=== PATIENT | male | born 1940 | race Caucasian/White ===

== ENCOUNTER → 2016-05-01 | Outpatient (CLI) | payer MEDICARE ==
[~2016-05-01] MED LIST: AMLO10TA82 PO; AMOX875T2 PO; AVOD0.5CAP PO; BENZ-13 PO; DABI150C2 PO; DRON400T2 PO; ERGO400T3 PO; GLIP10TA13 PO; KCL10CCR PO; LISI1TAB10 PO; METF-380 PO
--- NOTE | 2016-05-01 14:03 | Diagnostic Imaging Report ---
Ultrasound of the liver. INDICATION: Elevated liver enzymes. FINDINGS: The pancreas is obscured by bowel gas. The liver has hyperechoic parenchyma which attenuates the ultrasound beam suggestive of fatty infiltration. There is hepatopetal flow in the portal vein seen. There are multiple gallstones noted. The gallbladder is partially contracted. The patient ate breakfast two hours prior to the exam, and this is therefore not an unexpected finding in this setting. The CBD is obscured by bowel gas. The gallbladder wall is not significantly thickened. There is no pericholecystic fluid. Sonographic Currie sign is negative. The right kidney is 10.6 cm in length with no hydronephrosis or focal lesion. No fluid collection in the upper right abdomen seen. IMPRESSION: 1. Cholelithiasis. 2. Hepatic steatosis. Dictated by: Dictated on workstation # [id number]
== END ==
LOC: RAD 09:02
PROVIDERS: ATTEND Internal Medicine
DX: K80.20 Calculus of gallbladder without cholecystitis without obstruction (principal); K76.0 Fatty (change of) liver, not elsewhere classified
CPT/HCPCS: 76705

== ENCOUNTER 2016-05-21 09:27 | Outpatient (RCR) | payer MEDICARE ==
[2016-04-29 10:29] LABS: BASOPHILS % (AUTO) 1 % (0-10); EOSINOPHILS # (AUTO) 0.1 10^3/uL (0.0-0.3); EOSINOPHILS % (AUTO) 2 % (0-10); LYMPHOCYTES # (AUTO) 1.4 X 10^3 (1.0-4.0); LYMPHOCYTES % (AUTO) 31 % (12-44); MEAN CORPUSCULAR HEMOGLOBIN 31 PG (25-34); MEAN CORPUSCULAR HGB CONC 36 G/DL (32-36); MEAN CORPUSCULAR VOLUME 87 FL (80-99); MEAN PLATELET VOLUME 9.2 FL (7.4-10.4); MONOCYTES # (AUTO) 0.6 X 10^3 (0.0-1.0); MONOCYTES % (AUTO) 12 % (0-12); NEUTROPHILS # (AUTO) 2.5 X 10^3 (1.8-7.8); NEUTROPHILS % (AUTO) 54 % (42-75); PLATELET COUNT 204 10^3/uL (130-400); RED BLOOD COUNT 4.59 10^6/uL (4.35-5.85); RED CELL DISTRIBUTION WIDTH 13.4 % (10.0-14.5); WHITE BLOOD COUNT 4.6 10^3/uL (4.3-11.0)
[2016-05-05 08:47] LABS: 5 HIAA SEROTONIN URINE MG/L 3.3 MG/L; 5 HIAA SEROTONIN URINE RATIO 4 mg/gCR (0-14)
[2016-05-05 08:48] LABS: 5 HIAA URINE INTERPRETATION SEE FOOTNOTE; 5HIAA CREATININE 80 MG/DL; CREATININE SEROTONIN 1720 MG/D (800-2100)
[~2016-05-21 09:27] MED LIST changes: -BARIUM SUSPENSION 2.1% (VANILLA SILQ) 450 ML PO ONE; -CATHETER FLUSH 10 ML SYR IV PRN; -IOHEXOL 350 MG/ML 100 ML (OMNIPAQUE 350) VIAL IV ONE; -NS 100 ML (IVPB) BAG IV ONE; +NS IV 1000 ML (CANCER CTR) 1,000 ML ONE
== END 2016-07-28 | disposition home or self-care (01) ==
LOC: ONC 09:27
PROVIDERS: ATTEND Internal Medicine Hematology & Oncology
DX: Z08 Encounter for follow-up examination after completed treatment for malignant neoplasm (principal); Z85.89 Personal history of malignant neoplasm of other organs and systems; E11.22 Type 2 diabetes mellitus with diabetic chronic kidney disease; N18.3 Chronic kidney disease, stage 3 (moderate); Z79.899 Other long term (current) drug therapy
CPT/HCPCS: 36415; 83497; 85025; 86316; 96360; 99213

== ENCOUNTER → 2016-05-21 | Outpatient (CLI) | payer MEDICARE ==
[~2016-05-21] MED LIST changes: +BARIUM SUSPENSION 2.1% (VANILLA SILQ) 450 ML PO ONE; +CATHETER FLUSH 10 ML SYR IV PRN; +IOHEXOL 350 MG/ML 100 ML (OMNIPAQUE 350) VIAL IV ONE; +NS 100 ML (IVPB) BAG IV ONE
--- NOTE | 2016-05-21 14:10 | Diagnostic Imaging Report ---
PROCEDURE: CT chest, abdomen, and pelvis with contrast. TECHNIQUE: Multiple contiguous axial images were obtained through the chest, abdomen, and pelvis after the administration of intravenous contrast. INDICATION: Rectal cancer. COMPARISON: Exam compared with an abdominal and pelvic CT from 02/14/2013 and most recent chest performed on 02/10/2010. FINDINGS: Chest: Incidental azygos fissure is noted. Some mild subcarinal adenopathy shows mild increased from the prior. A rounded node measures a diameter of 1.9 cm today, previously 1.4 cm. A right inferior pulmonary hilar node posteriorly measuring 11 mm was previously about 9 mm. Shotty nodes on the left of the torey and inferomedial to the left main pulmonary artery measured 1.4 cm maximal, previously 0.9 cm. A right paramedian pretracheal node has a thickness of 7 mm today, previously 6 mm. These are only slight interval changes from a study of 2010 favoring benignity. No new melody mass could be identified, and no suspicious pulmonary parenchymal nodule. No evidence of pneumonia. No thoracic effusion. No acute chest wall pathology. Axillae appeared normal. No suspicious bony lesion. Abdomen and pelvis: Hepatic steatosis is a chronic finding as is cholecystolithiasis. No biliary dilatation, and no appreciable liver mass. The adrenals are negative. The spleen is negative. The pancreas is negative. The right upper quadrant portacaval lymph node is unchanged from the prior study of 2013 measuring 2.3 x 1.2 cm. The appendix is visualized and normal. There is no diverticulitis. There is no retroperitoneal lymphadenopathy. 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 There are bilateral bladder diverticula, better visualized at today's exam probably owing to interval greater bladder luminal distention. The bladder appeared otherwise normal. Thickening of the rectum discussed on prior exam is no longer clearly apparent. No perirectal adenopathy. IMPRESSION: Chest: Borderline hilar and mediastinal lymph nodes are present on the study of 2012 and show either stability or very minimal increased size from that exam strongly suggestive of benignity. No new mass or pulmonary nodule. No acute thoracic abnormality. Abdomen: Chronic fatty liver. Mildly prominent right upper quadrant stable mesenteric lymph node. No findings suggestive of metastasis and no obstruction. Pelvis: Previous rectal wall thickening no longer identified. No perirectal adenopathy. Normal appendix and no inflammatory process or acute finding. Bladder diverticula noted. Dictated by: Dictated on workstation # [id number]
== END ==
LOC: RAD 11:23
PROVIDERS: ATTEND Internal Medicine Hematology & Oncology
DX: D3A.026 Benign carcinoid tumor of the rectum (principal); R97.8 Other abnormal tumor markers
CPT/HCPCS: 71260; 74177

== ENCOUNTER → 2016-12-07 | Outpatient (CLI) | payer MEDICARE ==
[~2016-12-07] MED LIST changes: -NS IV 1000 ML (CANCER CTR) 1,000 ML ONE
== END ==
LOC: RAD 08:26
PROVIDERS: ATTEND Internal Medicine Cardiovascular Disease
DX: I48.0 Paroxysmal atrial fibrillation (principal); I65.23 Occlusion and stenosis of bilateral carotid arteries; I51.7 Cardiomegaly; E78.2 Mixed hyperlipidemia; I10 Essential (primary) hypertension
CPT/HCPCS: 93306

== ENCOUNTER 2018-05-09 09:48 | Outpatient (RCR) | payer OTHER, MEDICARE ==
[2018-05-02 09:02] LABS: BASOPHILS % (AUTO) 1 % (0-10); EOSINOPHILS # (AUTO) 0.1 10^3/uL (0.0-0.3); EOSINOPHILS % (AUTO) 2 % (0-10); HEMATOCRIT 39 % (40-54); HEMOGLOBIN 13.9 G/DL (13.3-17.7); LYMPHOCYTES # (AUTO) 1.2 X 10^3 (1.0-4.0); LYMPHOCYTES % (AUTO) 32 % (12-44); MEAN CORPUSCULAR HEMOGLOBIN 32 PG (25-34); MEAN CORPUSCULAR HGB CONC 36 G/DL (32-36); MEAN CORPUSCULAR VOLUME 89 FL (80-99); MEAN PLATELET VOLUME 9.8 FL (7.4-10.4); MONOCYTES # (AUTO) 0.4 X 10^3 (0.0-1.0); MONOCYTES % (AUTO) 11 % (0-12); NEUTROPHILS # (AUTO) 2.1 X 10^3 (1.8-7.8); NEUTROPHILS % (AUTO) 54 % (42-75); PLATELET COUNT 178 10^3/uL (130-400); RED CELL DISTRIBUTION WIDTH 13.1 % (10.0-14.5); WHITE BLOOD COUNT 3.8 10^3/uL (4.3-11.0)
[2018-05-02 09:18] LABS: BILIRUBIN,TOTAL 0.7 MG/DL (0.1-1.0); CALCIUM 8.8 MG/DL (8.5-10.1); CREATININE SERUM 1.22 MG/DL (0.60-1.30); POTASSIUM 3.8 MMOL/L (3.6-5.0); TOTAL PROTEIN 6.5 GM/DL (6.4-8.2)
[~2018-05-09 09:48] MED LIST changes: -BENZ-13 PO; +BENZ100C18 PO
== END 2018-07-31 | disposition home or self-care (01) ==
LOC: ONC 09:48
PROVIDERS: ATTEND Internal Medicine Hematology & Oncology
DX: D3A.026 Benign carcinoid tumor of the rectum (principal); E11.22 Type 2 diabetes mellitus with diabetic chronic kidney disease; N18.3 Chronic kidney disease, stage 3 (moderate); Z79.899 Other long term (current) drug therapy
CPT/HCPCS: 36415; 80053; 83497; 85025; 86316; 99213

== ENCOUNTER → 2018-07-27 | Day surgery (SDC) | payer MEDICARE, OTHER ==
[~2018-07-27] MED LIST changes: +LIDOCAINE 1% INJ 20 ML 20 ML VIAL ONE
--- NOTE | 2018-07-27 12:24 | Implantation of Loop Monitor ---
Implant of Loop Monitior IMPLANTATION OF LOOP MONITOR REPORT DATE OF PROCEDURE: 07/27/18 PREOP DIAGNOSIS: paroxysmal atrial fibrillation POSTOP DIAGNOSIS: paroxysmal atrial fibrillation PROCEDURE DETAILS: The patient is a 77 male with history of paroxysmal atrial fibrillation requiring long-term surveillance. Therefore implantable loop recorder was discussed and agreed with the patient. Informed consent was taken. All risks and complications were discussed at length. The patient was draped and prepped in the usual sterile fashion. Local anesthesia was lidocaine, which was given in the substernal area close to the 4th intercostal space. Loop monitor [employer] was serial number [id number] implanted according to the protocol. Steri- Strips were placed at the end of the procedure. There were no complications and the patient tolerated the procedure well. The device was interrogated with a voltage of. ANESTHESIA: Local anesthesia with lidocaine. COMPLICATIONS: None CONTRAST/FLUOROSCOPY: None CONCLUSION: 1. Successful implantation of loop recorder with no complication FINAL DIAGNOSIS: paroxysmal atrial fibrillation Hypertension Hyperlipidemia GISSELLE DONOHUE MD Jul 27, 2018 12:24
--- OUTSIDE RECORDS SUMMARY | 2018-07-27 21:22 | XMS REPORT | Clinical Summary ---
Author Author [facility] Organization [facility] Address Unknown Phone Unavailable Care Team Providers Care Rn Mobile Name Role Phone Unknown, Unknown Md PCP Unavailable Source Comments Some departments are not documenting in the electronic medical record. If you d o not see the information that you expected, contact Release of Information in [facility] [employer] Information Management department at [phone] for further assistan ce in locating additional records.[facility] Allergies Comments Active Allergy Reactions Severity Noted Date Metoprolol Tartrate DIZZINESS 04/03/2014 Medications End Date Status Medication Sig Dispensed Refills Start Date Active potassium chloride SR Take 10 mEq 0 (K-DUR) 10 mEq tablet by mouth daily. Active amLODIPine (NORVASC) 10 Take 10 mg by 0 mg tablet mouth daily. Active glipiZIDE CR (GLUCOTROL Take 10 mg by 0 XL) 10 mg tablet mouth daily. Active lisinopril/hydrochlorothi Take 1 Tab by 0 azide (ZESTORETIC) 20/25 mouth daily. tablet 1 Tab Active metFORMIN (GLUCOPHAGE) Take 1,000 mg 0 1,000 mg tablet by mouth twice daily with meals. Active dronedarone (MULTAQ) 400 Take 400 mg 0 mg tablet by mouth twice daily with meals. Active dabigatran (PRADAXA) 150 Take 150 mg 0 mg capsule by mouth twice daily. Active Problems Problem Noted Date Anxiety A-fib Overview: 11/28/12: Exercise Stress: Normal LV size/function, EF 60. No ischemia or infarction on SPECT images. 11/23/12: Echo: Normal, EF 60. Bruises easily Carotid bruit Carotid artery stenosis Nocturia Unspecified hearing loss HLD (hyperlipidemia) Paroxysmal atrial tachycardia Palpitations Diabetes mellitus HTN (hypertension) Family History Medical History Relation Name Comments Diabetes Type II Paternal Aunt Diabetes Type II Sister Relation Name Status Comments Father Mother Paternal Aunt Sister Social History Date Tobacco Use Types Packs/Day Years Used Former Smoker Cigarettes 0.5 25 Smokeless Tobacco: Never Used Comments: Quit 30-35 years ago Drinks/Week oz/Week Comments Alcohol Use 7 Cans of beer 4.2 1 light beer daily Yes Sex Assigned at Date Recorded Not on file Industry Job Start Date Occupation Not on file Not on file Not on file Travel End Travel History Travel Start No recent travel history available. Last Filed Vital Signs Reading Time Taken Comments Vital Sign 138/70 06/14/2014 10:20 AM CDT Blood Pressure 56 06/14/2014 10:04 AM CDT Pulse - - Temperature - - Respiratory Rate - - Oxygen Saturation - - Inhaled Oxygen Concentration 87.8 kg (193 lb 8 oz) 06/14/2014 10:04 AM CDT Weight 181.6 cm (5' 11.5") 06/14/2014 10:04 AM CDT Height 26.61 06/14/2014 10:04 AM CDT Body Mass Index Plan of Treatment Health Maintenance Due Date Last Done Comments PHYSICAL (COMPREHENSIVE) 1947 EXAM DTAP/TDAP VACCINES (1 - 1956 Tdap) SHINGLES RECOMBINANT 1988 VACCINE (1 of 2) PNEUMONIA (PCV13/PPSV23) 09/04/2003 VACCINES (1 of 2 - PCV13) INFLUENZA VACCINE 11/08/2018 Results Not on filefrom Last 3 Months Insurance Type Payer Benefit Subscriber ID Effective Phone Address Plan / Dates Group Medicare MEDICARE RAILROAD MEDICARE xxxxxxxxxx 2014- [employer]RO[employer] Present PART A AND B PPO BCBS [facility] xxxxxxxxxxxx 2014- [facility] Present Advance Directives Patient Blood Or Blood Bank Technician Explanation Type Date Recorded Advance 03/12/2014 12:56 PM Directive/DPOA
--- OUTSIDE RECORDS SUMMARY | 2018-07-27 21:22 | XMS REPORT | Encounter Summary ---
Author Author [facility] Organization [facility] Address Unknown Phone Unavailable Care Team Providers Care Copying Machine Repairer Name Role Phone Unknown, Unknown Md PCP Unavailable Reason for Visit * Reason Comments New Patient Atrial fibrillation Encounter Details Care Team Description Date Type Department Fabi Peck New Patient; Atrial fibrillation 04/02/2014 Patient Profile [facility] [address] [facility] [place] [address] Social History Date Tobacco Use Types Packs/Day Years Used Former Smoker Cigarettes Drinks/Week oz/Week Comments Alcohol Use Yes Sex Assigned at Date Recorded Not on file Industry Job Start Date Occupation Not on file Not on file Not on file Travel End Travel History Travel Start No recent travel history available. documented as of this encounter Plan of Treatment Not on filedocumented as of this encounter Results * DEVICE EVALUATION - ILR (04/03/2014 12:15 PM SERVICE TRANSFORMER REPAIR SUPERVISOR) Specimen Narrative Performed At Current Monitoring Period : 12/29/13to 04/03/14. OTHER OUTSIDE LAB Reveal LNQ11, [id number] Date of Implant: 12/29/13 Follow Up MD : Cristiane Reason for Implant: Afib Counters since 12/29/2013: Symptom 1 Tachy 1 Pause 0 Chase 11 AT/AF AT 0 AF 105 % of AT/AF 0.2% Parameters were not printed. Implanted and followed by Dr Sauer Battery Status: Good Presenting rhythm strip shows:NSR 85 with PACs Changes to device: Ectopy rejection changed to aggressive. Episode # 118:Last event on Apr 01 @17:16, lasting 4 minutes. ECM looks like Afib. Episode 107-117: All chase episodes. ECM shows SB with undersensed PVCs. All occur between 2350 and 410. Episodes previous to that are marked AF with most that have ECM showing SR with PACsand noiseor SB with PVCs Episode 25 on is marked as symptom, but pt says that was test. He has had no symptoms. Reviewed with Dr Leon in clinic. Procedure Note Robi Leon MD - 04/05/2014 5:13 PM SERVICE TRANSFORMER REPAIR SUPERVISOR Current Monitoring Period : 12/29/13to 04/03/14. Reveal LNQ11, [id number] Date of Implant: 12/29/13 Follow Up MD : Cristiane Reason for Implant: Afib Counters since 12/29/2013: Symptom 1 Tachy 1 Pause 0 Chase 11 AT/AF AT 0 AF 105 % of AT/AF 0.2% Parameters were not printed. Implanted and followed by Dr Sauer Battery Status: Good Presenting rhythm strip shows: NSR 85 with PACs Changes to device: Ectopy rejection changed to aggressive. Episode # 118:Last event on Apr 01 @17:16, lasting 4 minutes. ECM looks like Afib. Episode 107-117: All chase episodes. ECM shows SB with undersensed PVCs. All occur between 2350 and 410. Episodes previous to that are marked AF with most that have ECM showing SR with PACsand noise or SB with PVCs Episode 25 on is marked as symptom, but pt says that was test. He has had no symptoms. Reviewed with Dr Leon in clinic. Performing Organization Address City/State/Zipcode Phone Number OTHER OUTSIDE LAB documented in this encounter Visit Diagnoses Diagnosis Anxiety - Primary Anxiety state, unspecified A-fib (HCC) Atrial fibrillation Bruises easily Other symptoms involving skin and integumentary tissues Carotid bruit Other symptoms involving cardiovascular system Carotid artery stenosis Occlusion and stenosis of carotid artery without mention of cerebral infarction Type II or unspecified type diabetes mellitus without mention of complication, not stated as uncontrolled Nocturia Unspecified hearing loss Unspecified essential hypertension HLD (hyperlipidemia) Other and unspecified hyperlipidemia Paroxysmal atrial tachycardia (HCC) Paroxysmal supraventricular tachycardia Palpitations HTN (hypertension) Unspecified essential hypertension documented in this encounter
--- OUTSIDE RECORDS SUMMARY | 2018-07-27 21:22 | XMS REPORT | Encounter Summary ---
Author Author [facility] Organization [facility] Address Unknown Phone Unavailable Care Team Providers Care Roll Hauler Name Role Phone Unknown, Unknown PCP Unavailable Encounter Details Care Team Description Date Type Department Robi Leon MD [address] [facility] [place] [address] [phone] 06/14/2014 [facility] [address] [place] [address] Social History Date Tobacco Use Types Packs/Day [...] history available. documented as of this encounter Medications at Time of Discharge Start Date End Date Medication Sig Dispensed Refills amLODIPine (NORVASC) 10 Take 10 mg by 0 mg tablet mouth daily. dabigatran (PRADAXA) 150 Take 150 mg 0 mg capsule by mouth twice daily. dronedarone (MULTAQ) 400 Take 400 mg 0 mg tablet by mouth twice daily with meals. glipiZIDE CR (GLUCOTROL Take 10 mg by 0 XL) 10 mg tablet mouth daily. lisinopril/hydrochlorothi Take 1 Tab by 0 azide (ZESTORETIC) 20/25 mouth daily. tablet 1 Tab metFORMIN (GLUCOPHAGE) Take 1,000 mg 0 1,000 mg tablet by mouth twice daily with meals. potassium chloride SR Take 10 mEq 0 (K-DUR) 10 mEq tablet by mouth daily. documented as of this encounter Plan of Treatment Not on filedocumented as of this encounter Procedures Comments Procedure Name Priority Date/Time Associated Diagnosis DEVICE EVALUATION - ILR Routine 06/14/2014 A-fib 12:24 PM CDT Carotid artery stenosis HLD (hyperlipidemia) Paroxysmal atrial tachycardia HTN (hypertension) Carotid bruit Palpitations documented in this encounter Results * DEVICE EVALUATION - ILR (06/14/2014 12:24 PM CDT) Specimen Narrative Performed At 06/14/2014 - ILR LING interrogation in the office. OTHER OUTSIDE LAB Reveal LNQ11, [id number] Date of Implant: 12/29/2013 Follow Up MD : Dr. Sauer Reason for Implant: AF Managment Counters: Lifetime as of 04/03/14 Programmed Parameters:Detection Rate Duration Symptom 0ON4 7.5 mins events Tachy 0ON 154 bpm 16 beats Pause 1ON3 secs Chase 0ON 30 bpm 4 beats AT/AF 3ONAll Episodes % of time in AT/AF <0.1% Battery Status: Good Presenting rhythm strip shows:VS at 57-67 bpm Pause episode #121 on 05/17/14 shows VS at 70's with undersensing - no true arrythmia noted. AF events #119, 120 and 122 all appear to show VS at 70-80's bpm with PAC's - no true AF noted. Report given to MPE in clinic. EG Performing Organization Address City/State/Zipcode Phone Number OTHER OUTSIDE LAB documented in this encounter Visit Diagnoses Diagnosis A-fib (HCC) Atrial fibrillation Carotid artery stenosis Occlusion and stenosis of carotid artery without mention of cerebral infarction HLD (hyperlipidemia) Other and unspecified hyperlipidemia Paroxysmal atrial tachycardia (HCC) Paroxysmal supraventricular tachycardia HTN (hypertension) Unspecified essential hypertension Carotid bruit Other symptoms involving cardiovascular system Palpitations documented in this encounter
--- OUTSIDE RECORDS SUMMARY | 2018-07-27 21:22 | XMS REPORT | Encounter Summary ---
Author Author [facility] Organization [facility] Address Unknown Phone Unavailable Care Team Providers Care Field Return Repairer Name Role Phone Unknown, Unknown PCP Unavailable Encounter Details Care Team Description Date Type Department Robi Leon MD [address] [facility] [place] [address] [phone] 04/03/2014 [facility] [address] [place] [address] Social History Date Tobacco Use Types Packs/Day [...] (K-DUR) 10 mEq tablet by mouth daily. 06/14/2014 cholecalciferol (VITAMIN Take 800 0 D-3) 400 unit tab Units by mouth daily. documented as of this encounter Plan of Treatment Not on filedocumented as of this encounter Procedures Comments Procedure Name Priority Date/Time Associated Diagnosis DEVICE EVALUATION - ILR Routine 04/03/2014 A-fib 12:15 PM SUPERVISOR TITLE documented in this encounter Results * DEVICE EVALUATION - ILR (04/03/2014 12:15 PM SUPERVISOR TITLE) Specimen Narrative Performed At Current Monitoring Period : 12/29/13to 04/03/14. OTHER OUTSIDE LAB Reveal LNQ11, [id number] Date of Implant: 12/29/13 Follow Up MD Lilly Sauer Reason for Implant: Afib Counters since 12/29/2013: [...] SB with undersensed PVCs. All occur between 2351 and 0411. Episodes previous to that are marked AF with most that have ECM showing SR with PACsand noiseor SB with PVCs Episode 25 on is marked as symptom, but pt says that was test. He has had no symptoms. Reviewed with Dr Leon in clinic. Procedure Note Robi Leon MD - 04/05/2014 5:13 PM SUPERVISOR TITLE Current Monitoring Period : 12/29/13to 04/03/14. Reveal LNQ11, [id number] Date of Implant: 12/29/13 Follow Up MD Lilly Sauer Reason for Implant: Afib Counters since 12/29/2013: [...] SB with undersensed PVCs. All occur between 2351 and 1. Episodes previous to that are marked AF [...] Visit Diagnoses Diagnosis A-fib (HCC) Atrial fibrillation documented in this encounter
--- OUTSIDE RECORDS SUMMARY | 2018-07-27 21:22 | XMS REPORT | Encounter Summary ---
Author Author [facility] Organization [facility] Address Unknown Phone Unavailable Care Team Providers Care Forklift Material Handler Name Role Phone Unknown, Unknown PCP Unavailable Reason for Visit * Reason Comments Atrial fibrillation Encounter Details Care Team Description Date Type Department Robi Leon MD [address] [facility] [place] [address] [phone] Atrial fibrillation 06/14/2014 Office Visit The [facility] [address] [place] [address] Social History Date Tobacco Use Types Packs/Day [...] history available. documented as of this encounter Last Filed Vital Signs Reading Time Taken [...] 06/14/2014 10:04 AM CDT Body Mass Index documented in this encounter Patient Instructions * Patient Instructions* Josué Garcia RN - 06/14/2014 11:25 AM CDT 1. Since Multaq is too expensive, ask Dr. Sauer his thoughts on Sotalol start in [place] or at . documented in this encounter Progress Notes * Robi Leon MD - 06/12/2014 8:28 AM CDT Date of Service: 06/14/2014 Jeffy Downing is a 73 y.o. male. HPI I had the pleasure of seeing your patient Jeffy Downing for follow-up in the [facility] as a part of the [facility] [place] office today. Mr. Downing is an exceptionally pleasant 73 y.o. male, who is accompanied by his equally pleasant spouse. He is typically followed by my friend and colleague Dr. Sauer, his primary cardi ologist. His daughter is a surgical nurse. His PMHx briefly includes: PAFIB, Short Runs of ATACH noted on Stress Imaging, R eveal LinQ Implant 12/[address] Sauer, Normal LV Function by Echo 2012 at OSH with Mild LA Dilation and Mild MR/TR, Negative Stress Spec Imaging with Severe H ypertensive Response to Exercise in 2012 at OSH, Baseline RBBB, HTN, Hyperlipide flory, DM, Prior Tobacco Abuse, and Prior Carotid Duplex with <50% Stenosis 05/2013 at OSH. He also has a Hx of Colon CA that was removed. He did not require Chemo or Radia tion Tx. Intolerance to Metoprolol 25 mg BID--see OV note 04/03/14. His Hx of AFIB dates back to ~early 2013. To monitor for recurrent/new AFIB vasyl use his arrhythmias were essentially aSxic, Dr. Sauer ultimately implanted a Rev eal LinQ monitor 12/2013 . 03/12/14 Follow up OV with Dr. Sauer. At that time, his LinQ device had documented frequent episodes of APDs and PAFIB. He reinitiated Pradaxa and newly initiated Multaq and Metoprolol 25 mg BID. As well as referred him for EP Consultation to discuss possible AFIB RFA. Shortly there after, his Metoprolol was discontinued secondary to LHedness, significant fatigue, and bradycardia in the 40s bpm rang e. Dr. Sauer checked TSH and other labs previously. 04/03/14 At his Initial EP Consultation, Mr. Downing stated that he was feeling we ll. He stated he was very active recently spending 3 months hunting with his you nger nephew and "keeping up with him." He was unaware of his AFIB i.e. denied any palpations, etc. Both he and his denied any snoring and he did not have any other Sxs sugges tive of Sleep Apnea. We discussed multiple Tx options for his AFIB. At that time, since it appeared as though Multaq had had some impact on the freq uency of his arrhythmic events, we planned to reassess his arrhythmia burden aft er an additional month of Tx. His current complaints and status are discussed/described in the Assessment and Plan section below. He however denies any chest discomfort, shortness of breath, palpitations, light headedness, dizziness, near syncope or syncope, PND or orthopnea. Assessment and Plan He states his "great!" --Paroxysmal Atrial Fibrillation (PAFIB): Well controlled on Multaq. He has had no AFIB since our last OV. HRs at home have been mostly in the 60s bpm range. Unfortunately, his insurance will not cover Multaq. We discussed other medication options for AA Tx to include Tikosyn or Sotalol. T ikosyn will likely be as expensive. Sotalol, however, is not. As you know, Sotalol requires monitoring in the hospital of the first 5 doses. They will discuss this further with Dr. Sauer's office whether he wishes to do t hat himself or send the pt to for Sotalol initiation. If he has AFIB with increased frequency or duration, I would likely recommend AF IB RFA. --Isolated Atrial Ectopy (APDs): His arrhythmias are aSxic. We programmed his A PD Suppression ON. Again, if he only has APDs and no AFIB, he does not warrant a ny change in Tx. --Prior Sinus Bradycardia: HRs at home have been mostly in the 60s bpm range. --Anticoagulation: On Pradaxa. He denies any bleeding issues. --HTN: Under reasonable control. Filed Vitals: 06/14/14 1004 06/14/14 1020 BP: 130/74 138/70 Pulse: 56 Height: 1.816 m (5' 11.5") Weight: 87.771 kg (193 lb 8 oz) Body mass index is 26.61 kg/(m^2). Past Medical History Patient Active Problem List Diagnosis Date Noted Anxiety A-fib 11/28/12: Exercise Stress: Normal LV size/function, EF 60. No ischemia or infa rction on SPECT images. 11/23/12: Echo: Normal, EF 60. Bruises easily Carotid bruit Carotid artery stenosis Nocturia Unspecified hearing loss HLD (hyperlipidemia) Paroxysmal atrial tachycardia Palpitations Diabetes mellitus HTN (hypertension) ROS All other systems reviewed and are negative. Physical Exam Const: He is in no acute distress, resting comfortably. Neuro: Patient is alert and oriented. Resp: Clear to auscultation bilaterally. Cardiovascular: No evidence of increased jugular venous pressure, carotids are 2+/4+ equal bilaterally. Regular rhythm, S1, S2. 2/6 systolic murmur noted at the RUSB --> LLSB. No heaves, thrills or rubs. Device: is just left of the sternum and well-healed. Extremities: With trace pretibial and pedal pitting peripheral edema. Cardiovascular Studies ECG today demonstrates Sinus Rhythm at 56 bpm with RBBB. RI 196 ms, QRSd 148 ms, QTc 452 ms. Full LinQ device check performed with reprogramming which I have extensively rev iewed. Changes, if done, as discussed below and is detailed in other dictation/ note. No Sx-activated events since 04/03/14. 3 AF events and 1 pause. The pause was thu ar undersensing and the AFIB was in fact normal rhythm with APDs, NOT AFIB. Assessment and Plan As above. Mr. Downing was educated regarding plan of care. He was instructed to call our of fice with any questions or concerns, as well as to notify us of any new or worse lakeshia symptoms. He verbalized understanding. I appreciate the opportunity to participate in the care of your patient. Please do not hesitate to contact me directly if you have any questions or furth er insights into his care. I have scheduled his follow-up with me in 6 month(s) . Current Medications (including today's revisions) amLODIPine (NORVASC) 10 mg tablet Take 10 mg by mouth daily. dabigatran (PRADAXA) 150 mg capsule Take 150 mg by mouth twice daily. dronedarone (MULTAQ) 400 mg tablet Take 400 mg by mouth twice daily with evelyn ls. glipiZIDE CR (GLUCOTROL XL) 10 mg tablet Take 10 mg by mouth daily. lisinopril/hydrochlorothiazide (ZESTORETIC) 20/25 tablet 1 Tab Take 1 Tab by mouth daily. metFORMIN (GLUCOPHAGE) 1,000 mg tablet Take 1,000 mg by mouth twice daily wi th meals. potassium chloride SR (K-DUR) 10 mEq tablet Take 10 mEq by mouth daily. Documentation recorded by Elvira Zabala, acting as scribe for Robi Leon M.D. documented in this encounter Miscellaneous Notes * Addendum Note - Josué Garcia RN - 06/14/2014 11:27 AM CDT Addended by: JOSUÉ GARCIA on: 06/14/2014 11:27 AM Modules accepted: Orders documented in this encounter Plan of Treatment Order Schedule Name Type Priority Associated Diagnoses Ordered: 06/14/2014 ECG 12-LEAD ECG Routine Paroxysmal atrial fibrillation HLD (hyperlipidemia) Paroxysmal atrial tachycardia Essential hypertension Palpitations Expected: 12/15/2014, Expires: 06/15/2015 DEVICE EVALUATION - ILR Heart Rhythm Routine Paroxysmal atrial Management fibrillation HLD (hyperlipidemia) Paroxysmal atrial tachycardia Essential hypertension Palpitations Routine general medical examination at a health care facility documented as of this encounter Procedures Comments Procedure Name Priority Date/Time Associated Diagnosis ECG/QRS Routine 06/14/2014 10:23 AM CDT documented in this encounter Results * ECG/QRS (06/14/2014 10:23 AM CDT) QRS DURATION 148 documented in this encounter Visit Diagnoses Diagnosis Routine general medical examination at a health care facility - Primary Paroxysmal atrial fibrillation (HCC) Atrial fibrillation HLD (hyperlipidemia) Other and unspecified hyperlipidemia Paroxysmal atrial tachycardia (HCC) Paroxysmal supraventricular tachycardia Essential hypertension Unspecified essential hypertension Palpitations Chronic atrial fibrillation (HCC) Atrial fibrillation documented in this encounter
--- OUTSIDE RECORDS SUMMARY | 2018-07-27 21:22 | XMS REPORT | Encounter Summary ---
Author Author [facility] Organization [facility] Address Unknown Phone Unavailable Care Team Providers Care Hoop Coiler Name Role Phone Unknown, Unknown Md PCP Unavailable Reason for Visit * Reason Comments New Patient referred by Dr. Sauer Atrial fibrillation Encounter Details Care Team Description Date Type Department Robi Leon MD [address] [facility] [place] [address] [phone] New Patient (referred by Dr. Sauer); Atrial fibrillation 04/03/2014 Office Visit The [facility] [address] [place] [address] Social History Date Tobacco Use Types Packs/Day [...] Signs Reading Time Taken Comments Vital Sign 130/70 04/03/2014 9:52 AM TOY TRAINS AND ACCESSORIES SALESPERSON Blood Pressure 62 04/03/2014 9:40 AM TOY TRAINS AND ACCESSORIES SALESPERSON Pulse - - Temperature - - Respiratory Rate - - Oxygen Saturation - - Inhaled Oxygen Concentration 88.9 kg (195 lb 14.4 oz) 04/03/2014 9:40 AM TOY TRAINS AND ACCESSORIES SALESPERSON Weight 181.6 cm (5' 11.5") 04/03/2014 9:40 AM TOY TRAINS AND ACCESSORIES SALESPERSON Height 26.94 04/03/2014 9:40 AM TOY TRAINS AND ACCESSORIES SALESPERSON Body Mass Index documented in this encounter Patient Instructions * Patient Instructions* Stephanie Polanco MA - 04/03/2014 10:41 AM TOY TRAINS AND ACCESSORIES SALESPERSON I would like you to check your pulse daily for irregularity and/or rapidity a nd contact our office either occurs and persists. Also keep a log of your heart rates(HR) and note if your pulse is regular(R) or irregular(I) and bring that log with you during each office visit. And have your daughter reassess your heart rate. Follow up in [address] Leon with device check TRAINS AND ACCESSORIES SALESPERSON documented in this encounter Progress Notes * Robi Leon MD - 04/01/2014 3:40 PM TOY TRAINS AND ACCESSORIES SALESPERSON Date of Service: 04/03/2014 Jeffy Downing is a 73 y.o. male. HPI I had the pleasure of seeing your patient Jeffy Downing for initial Electroph ysiolgy Consultation in the [facility] as a part of the [facility] [place] office today regarding his AFIB. He is typically followed and was referred by my friend and colleague Dr. Sauer, his primary solution manager. Mr. Downing is an exceptionally pleasant 73 y.o. male, who is accompanied by his equally pleasant spouse. His daughter is a surgical nurse. His PMHx briefly includes: PAFIB, Short Runs of ATACH noted on Stress Imaging, Reveal LinQ Implant 12/[address] Sauer, Normal LV Function by Echo 2012 at OSH with Mild LA Dilation and Mild MR/TR, Negative Stress Spec Imaging with Severe Hypertensive Response to Exercise in 2012 at OSH, Baseline RBBB, HTN, Hyperlipid emia, DM, Prior Tobacco Abuse, and Prior Carotid [...] Sauer checked TSH and other labs previously. Today, Mr. Downing states that he is feeling well. He states he is very active re cently spending 3 months hunting with his younger nephew and "keeping up with [employer]." He is unaware of his AFIB i.e. denies any palpations, etc. Both he and his deny any snoring and he does not have any other Sxs suggest michaelle of Sleep Apnea. He denies any chest discomfort, shortness of breath, palpitations, lightheadedne ss, dizziness, near syncope or syncope, PND or orthopnea. Assessment and Plan --Paroxysmal Atrial Fibrillation (PAFIB): His arrhythmias are aSxic. Since star ting Multaq ~3 weeks ago, he has continued to have at least ~3 or 4 days of freq uent ectopy and possibly 2 brief episodes of AFIB. The longest any episode has l asted has been 6 minutes in duration. Of his 105 events, the majority appear to be just isolated ectopy, and there francisco javier ears to be only 2, in particular, that may be AFIB vs Sinus Rhythm with very joshua quent APDs, triplets, etc. We had a lengthy discussion regarding atrial fibrillation, the pathophysiology o f Atrial Fibrillation, the mechanism, and therapeutic options. We discussed what I call the 3 R's: The Rhythm being abnormal; the Rate being R apid; and the Risk of stroke. We also discussed the difference between AFIB and APDs. We discussed the frequen t APDs make him prone to AFIB, but otherwise, by themselves, do not necessarily require treatment since he was aSxic. At this time, since it does appear as though Multaq has had some impact on the f requency of his events, we will reassess his arrhythmia burden after an addition al month of Tx. If there is still a question as to whether or not he has had any episodes of AFIB, then we may consider a ZioPatch monitor for 2 weeks or possib le 48-hr Holter to see if we can get clearer tracings of his arrhythmias. I have asked him to check his pulse daily for irregularity and/or rapidity and c ontact our office if it occurs and persists. I have asked him to keep a log incl uding date, HR, regular or irregular--elaborating on skipped beat or AFIB. I have asked that Dr. Sauer not check his LinQ device "in person" prior to our n ext OV to ensure that events between now and then do not get cleared, although r emote monitoring should not be an issue. We also discussed possible options of treatment for recurrent AFIB to include AF IB Ablation or different AA Tx. If recurrent AFIB is present, given his overall activity level, health, etc. I w ould likely pursue AFIB RFA. --Isolated Atrial Ectopy (APDs): His arrhythmias are aSxic. See plan above. Aga in, if he only has APDs and no AFIB, he does not warrant any change in Tx. --Prior Sinus Bradycardia: As above, I have asked him to check his pulse daily. He did not tolerate Metoprolol 25 mg BID, but may tolerate 12.5 mg BID and may benefit from some Beta-Matthew Tx. I have asked him to bring in a record of his HRs at his next visit. --Anticoagulation: On Pradaxa. He denies any bleeding issues. --HTN: Under reasonable control. Filed Vitals: 04/03/14 0940 04/03/14 0952 BP: 140/78 130/70 Pulse: 62 Height: 1.816 m (5' 11.5") Weight: 88.86 kg (195 lb 14.4 oz) Body mass index is 26.94 kg/(m^2). Past Medical History Patient Active Problem List Diagnosis Date Noted Anxiety A-fib 11/28/12: Exercise Stress: Normal LV size/function, EF 60. No ischemia or infa rction on SPECT images. 11/23/12: Echo: Normal, EF 60. Bruises easily Carotid bruit Carotid artery stenosis Nocturia Unspecified hearing loss HLD (hyperlipidemia) Paroxysmal atrial tachycardia Palpitations Diabetes mellitus HTN (hypertension) ROS HENT: Positive for hearing loss and tinnitus. Cardiovascular: Positive for dyspnea on exertion and irregular heartbeat. Musculoskeletal: Positive for joint pain and muscle cramps. Genitourinary: Positive for decreased libido. All other systems reviewed and are negative. Physical Exam Const: he is in no acute distress, resting comfortably. Neuro: Patient is alert and oriented. Skin: is warm and dry HEENT: PERRL, sclera non-icteric, no xanthalasmas noted, mucus membranes are radames st. Neck: without obvious palpable thyromegally or thyroid bruit Resp: Clear to auscultation bilaterally, with no rales, rhonchi, or wheezes. Cardiovascular: No evidence of increased jugular venous pressure, carotids are 2+ /4+ equal bilaterally, without obvious bruit. Regular rhythm, S1, S2. I do n ot appreciate any significant murmur today. No heaves, thrills, rubs. PMI is no t palpated Device: is in the left infraclavicular region and well healed. GI: soft and non-tender Extremities: With 1+ pretibial and pedal pitting peripheral edema. Distal puls es are intact. Cardiovascular Studies ECG today demonstrates Sinus Rhythm at 62 bpm with Isolated VPD and RBBB. RI 188 ms, QRSd 140 ms, QTc 443 ms. Full device check performed with reprogramming which I have extensively reviewed . Changes, if done, as discussed below and is detailed in other dictation/note. Since 12/29/13 he has had 105 "AFIB" events, 11 "chase" events, 1 Sxic activated event which was apparently testing his activator with a 0.2% AFIB burden. The l ongest episode was 6 minutes in duration of which he has had roughly 5 of these such episodes. EGM review of the most recent "AFIB" episode which occurred on documents what is either AFIB or in fact sinus rhythm with very frequent A PDs. Another "AFIB" event is clearly NSR with isolated APDs and VPDs. In fact, i t appears that the majority of his 105 episodes are not true AFIB but frequent e ctopy. His bradycardic events, most recently 03/31/14, document sinus bradycardia with under-sensed bigeminy. Assessment and Plan As above. Mr. Downing was educated regarding plan of care. He was instructed to call our of melanie with any questions or concerns, as well as to notify us of any new or worse lakeshia symptoms. He verbalized understanding. I appreciate the opportunity to participate in the care of your patient. Please do not hesitate to contact me directly if you have any questions or furth er insights into his care. I have scheduled his follow-up with me in 4-6 weeks. Current Medications (including today's revisions) amLODIPine (NORVASC) 10 mg tablet Take 10 mg by mouth daily. cholecalciferol (VITAMIN D-3) 400 unit tab Take 800 Units by mouth daily. dabigatran (PRADAXA) 150 mg [...] acting as scribe for Robi Leon M.D. TRAINS AND ACCESSORIES SALESPERSON documented in this encounter Miscellaneous Notes * Admin - SCANNED DOCUMENT - 04/04/2014 8:23 AM TOY TRAINS AND ACCESSORIES SALESPERSON TRAINS AND ACCESSORIES SALESPERSON documented in this encounter Plan of Treatment Order Schedule Name Type Priority Associated Diagnoses Ordered: 04/03/2014 ECG 12-LEAD ECG Routine A-fib documented as of this encounter Procedures Comments Procedure Name Priority Date/Time Associated Diagnosis ECG/QRS Routine 04/03/2014 9:55 AM TOY TRAINS AND ACCESSORIES SALESPERSON documented in this encounter Results * DEVICE EVALUATION - [facility] (06/14/2014 12:24 PM CDT) Specimen Narrative Performed At 06/14/2014 - [facility] LING interrogation in the office. OTHER OUTSIDE LAB Reveal [id number], [id number] Date of Implant: 12/29/2013 Follow Up MD [...] Address City/State/Zipcode Phone Number OTHER OUTSIDE LAB * ECG/QRS (04/03/2014 9:55 AM TOY TRAINS AND ACCESSORIES SALESPERSON) QRS DURATION 140 documented in this encounter Visit Diagnoses Diagnosis A-fib (HCC) - Primary Atrial fibrillation Carotid artery stenosis Occlusion and stenosis of carotid artery without mention of cerebral infarction HLD (hyperlipidemia) Other and unspecified hyperlipidemia Paroxysmal atrial tachycardia (HCC) Paroxysmal supraventricular tachycardia HTN (hypertension) Unspecified essential hypertension Carotid bruit Other symptoms involving cardiovascular system Palpitations documented in this encounter
--- OUTSIDE RECORDS SUMMARY | 2018-07-27 21:22 | XMS REPORT | Encounter Summary ---
Author Author [facility] Organization [facility] Address Unknown Phone Unavailable Care Team Providers Care Cargo Router Name Role Phone Unknown, Unknown Md PCP Unavailable Reason for Visit * Reason Comments Records Request Encounter Details Care Team Description Date Type Department Fabi Peck Records Request 03/29/2014 Documentation [facility] [address] [facility] [place] [address] Social History Date Tobacco Use Types Packs/Day Years Used Never Assessed Sex Assigned at Date Recorded Not on file Industry Job Start Date Occupation Not on file Not on file Not on file Travel End Travel History Travel Start No recent travel history available. documented as of this encounter Progress Notes * Fabi Peck - 03/29/2014 10:02 AM WARDSPERSON Jeffy Downing [address] Leon 04/03/14. Please fax medical records including last office note, medication list, all cardiac imaging/testing (echo, stress tests, CT, holter, event monitor,etc), any rhythm strips, op/pro cedure notes, H&P, etc MARTHA to [phone] Attn: Brii Thank you! SPERSON documented in this encounter Plan of Treatment Not on filedocumented as of this encounter Visit Diagnoses Not on filedocumented in this encounter
--- OUTSIDE RECORDS SUMMARY | 2018-07-27 21:22 | XMS REPORT | Encounter Summary ---
Author Author [facility] Organization [facility] Address Unknown Phone Unavailable Care Team Providers Care Sales And Production Manager Name Role Phone Unknown, Unknown Md PCP Unavailable Reason for Visit * Reason Comments Other pt call re: ov Encounter Details Care Team Description Date Type Department Liya Franco RN Other (pt call re: ov) 10/04/2014 Telephone [facility] [address] [place] [address] Social History Date Tobacco Use Types Packs/Day [...] history available. documented as of this encounter Miscellaneous Notes * Telephone Encounter - Adali Soto RN - 10/12/2014 8:04 AM CDT I reviewed with MPE. He stated that it is fine that patient just follow-up with Dr. Sauer and return to see MPE if needed. He also [facility] I called and spoke with patient's , giving her above information. She verbal ized understanding. Patient is still on Multaq. She stated that Dr. Sauer gives him samples sometimes to help with the cost of medication. * Telephone Encounter - Rebekah Johnson RN - 10/11/2014 4:[address] Leon told them he doesn't need a follow up and the schedule rs told him that we sent a follow up- Noted that MPE dictated that he would foll ow up in 6 months. I will ask the nurse working with MPE tomorrow in clinic to check with MPE. Makayla Johnson RN, [facility] - Triage * Telephone Encounter - Liya Franco RN - 10/04/2014 10:30 AM CDT Left message to call. ANTONELLA Gonzalez ----- Message from Fabi Pantera sent at 10/04/2014 10:15 AM CDT ----- Contact: Please call /disputes f/up documented in this encounter Plan of Treatment Not on filedocumented as of this encounter Visit Diagnoses Not on filedocumented in this encounter
--- OUTSIDE RECORDS SUMMARY | 2018-07-27 21:23 | XMS REPORT | Continuity of Care Document ---
Author Organization Unknown Address Unknown Allergies Active Description Code Type Severity Reaction Onset Reported/Identified Relationship to Patient Clinical Status Yes Iodinated Contrast Media - IV Dye [id number] Drug Allergy Unknown N/A 09/18/2015 Yes Iodinated Contrast Media - Oral and [id number] Drug Allergy Unknown N/A 09/18/2015 Yes Iodinated Contrast- Oral and IV Dye [id number] Drug Allergy Unknown N/A 09/18/2015 Medications There is no data. 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 07/20/2011 Ot 250.00 DIAB ROBB WO COMPL, TYPE II OR UNSPEC TY 07/20/2011 Ot 585.3 CHRONIC KIDNEY DISEASE, STAGE III (MODER 07/20/2011 Ot V10.91 PERSONAL HISTORY OF MALIGNANT NEUROENDOC 07/20/2011 Ot V58.69 OTH MED,LT,CURRENT USE 07/20/2011 Ot V67.09 SURGERY FOLLOW- UP, OTHER SURGERY 01/20/2012 Ot 250.00 DIAB ROBB WO COMPL, TYPE II OR UNSPEC TY 01/20/2012 Ot 585.3 CHRONIC KIDNEY DISEASE, STAGE III (MODER 01/20/2012 Ot V10.91 PERSONAL HISTORY OF MALIGNANT NEUROENDOC 01/20/2012 Ot V58.69 OTH MED,LT,CURRENT USE 01/20/2012 Ot V67.09 SURGERY FOLLOW- UP, OTHER SURGERY 07/10/2012 Ot 250.00 DIAB ROBB WO COMPL, TYPE II OR UNSPEC TY 07/10/2012 Ot 585.3 CHRONIC KIDNEY DISEASE, STAGE III (MODER 07/10/2012 Ot V10.91 PERSONAL HISTORY OF MALIGNANT NEUROENDOC 07/10/2012 Ot V58.69 OTH MED,LT,CURRENT USE 07/10/2012 Ot V67.09 SURGERY FOLLOW- UP, OTHER SURGERY 01/15/2013 NIKI DOROTEO Milton Ot 250.00 DIAB ROBB WO COMPL, TYPE II OR UNSPEC TY 01/15/2013 NIKIDOROTEO HUNT Ot 585.3 CHRONIC KIDNEY DISEASE, STAGE III (MODER 01/15/2013 NIKIDOROTEO HUNT Ot V10.91 PERSONAL HISTORY OF MALIGNANT NEUROENDOC 01/15/2013 NIKIDOROTEO HUNT Ot V58.69 OTH MED,LT,CURRENT USE 01/15/2013 NIKI DOROTEO Milton Ot V67.09 SURGERY FOLLOW-UP, OTHER SURGERY 01/29/2013 MICHAEL WEI, LADONNA Lange Ot 785.1 PALPITATIONS 12/28/2013 Ot 209.17 12/28/2013 Ot 571.8 12/28/2013 Ot 574.20 12/28/2013 Ot 250.00 12/28/2013 Ot 585.3 12/28/2013 Ot V10.91 12/28/2013 Ot V58.69 12/28/2013 Ot V67.09 12/28/2013 Ot 209.17 12/28/2013 Ot V72.84 12/28/2013 Ot 250.00 12/28/2013 Ot 401.9 12/28/2013 Ot V10.06 12/28/2013 Ot V67.09 12/28/2013 GISSELLE DONOHUE MD Ot 427.61 12/28/2013 GISSELLE DONOHUE MD Ot 427.89 12/28/2013 GISSELLE DONOHUE MD Ot 305.1 12/28/2013 GISSELLE DONOHUE MD Ot 397.0 12/28/2013 GISSELLE DONOHUE MD Ot 401.9 12/28/2013 GISSELLE DONOHUE MD Ot 424.0 12/28/2013 GISSELLE DONOHUE MD Ot 427.69 12/28/2013 GISSELLE DONOHUE MD Ot 427.9 12/28/2013 DOROTEO PRINCE Ot 250.00 12/28/2013 DOROTEO PRINCE Ot 585.3 12/28/2013 DOROTEO PRINCE Ot V10.91 12/28/2013 DOROTEO PRINCE Ot V58.69 12/28/2013 DOROTEO PRINCE Ot V67.09 12/28/2013 Ot 785.1 12/28/2013 IGOR WEI, NIGEL Antunez Ot 574.20 12/28/2013 IGOR WEI, NIGEL Antunez Ot 599.70 01/03/2014 GISSELLE DONOHUE MD Ot 250.00 01/03/2014 GISSELLE DONOHUE MD Ot 272.4 01/03/2014 GISSELLE DONOHUE MD Ot 401.9 01/03/2014 GISSELLE DONOHUE MD Ot 427.0 01/03/2014 GISSELLE DONOHUE MD Ot 427.31 01/03/2014 GISSELLE DONOHUE MD Ot V58.61 01/03/2014 GISSELLE DONOHUE MD Ot V58.69 01/14/2014 DOROTEO PRINCE Ot 250.00 DIAB ROBB WO COMPL, TYPE II OR UNSPEC TY 01/14/2014 DOROTEO PRINCE Ot 585.3 CHRONIC KIDNEY DISEASE, STAGE III (MODER 01/14/2014 DOROTEO PRINCE Ot V10.91 PERSONAL HISTORY OF MALIGNANT NEUROENDOC 01/14/2014 DOROTEO PRINCE Ot V58.69 OT MED,LT,CURRENT USE 01/14/2014 DOROTEO PRINCE Ot V67.09 SURGERY FOLLOW-UP, OTHER SURGERY 01/29/2014 GISSELLE DONOHUE MD Ot 250.00 01/29/2014 GISSELLE DONOHUE MD Ot 272.4 01/29/2014 GISSELLE DONOHUE MD Ot 401.9 01/29/2014 GISSELLE DONOHUE MD Ot 427.0 01/29/2014 GISSELLE DONOHUE MD Ot 427.31 01/29/2014 GISSELLE DONOHUE MD Ot V58.61 01/29/2014 GISSELLE DONOHUE MD Ot V58.69 04/14/2014 Ot 708.9 URTICARIA NOS 04/14/2014 Ot 782.1 NONSPECIF SKIN ERUPT NEC 10/11/2014 DOROTEO PRINCE Ot 250.00 10/11/2014 DOROTEO PRINCE Ot 585.3 10/11/2014 DOROTEO PRINCE Ot V10.91 10/11/2014 DOROTEO PRINCE Ot V58.69 10/11/2014 DOROTEO PRINCE Ot V67.09 11/07/2014 NIKI, DUANEALIZE N Ot 250.00 DIAB ROBB WO COMPL, TYPE II OR UNSPEC TY 11/07/2014 NIKI DOROTEO N Ot 585.3 CHRONIC KIDNEY DISEASE, STAGE III (MODER 11/07/2014 NIKIDOROTEO N Ot V10.91 PERSONAL HISTORY OF MALIGNANT NEUROENDOC 11/07/2014 NIKI DOROTEO N Ot V58.69 OTH MED,LT,CURRENT USE 11/07/2014 NIKI DOROTEO N Ot V67.09 SURGERY FOLLOW-UP, OTHER SURGERY 05/01/2015 NIKI, BOBAN N Ot 250.00 05/01/2015 NIKI, DOROTEO N Ot 585.3 05/01/2015 NIKI, DOROTEO N Ot V10.91 05/01/2015 NIKI, DOROTEO N Ot V58.69 05/01/2015 NIKI, BOBALIZE N Ot V67.09 05/02/2015 NIKI, BOBALIZE N Ot 250.00 05/02/2015 NIKIDOROTEO N Ot 585.3 05/02/2015 NIKIDOROTEO N Ot V10.91 05/02/2015 NIKI, BOBALIZE N Ot V58.69 05/02/2015 NIKI, BOBALIZE N Ot V67.09 05/31/2015 DOROTEO PRINCE N Ot E11.22 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 05/31/2015 NIKIDOROTEO N Ot N18.3 CHRONIC KIDNEY DISEASE, STAGE 3 (MODERAT 05/31/2015 DOROTEO PRINCE N Ot Z08 ENCNTR FOR FOLLOW-UP EXAM AFTER TRTMT FO 05/31/2015 DOROTEO PRINCE N Ot Z79.899 OTHER NURSING HOME (CURRENT) DRUG THERAPY 05/31/2015 DOROTEO PRINCE N Ot Z85.89 PERSONAL HISTORY OF MALIGNANT NEOPLASM O 07/10/2015 NIKIDOROTEO HUNT N Ot E11.22 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 07/10/2015 NIKIDOROTEO HUNT N Ot N18.3 CHRONIC KIDNEY DISEASE, STAGE 3 (MODERAT 07/10/2015 NIKIDOROTEO HUNT N Ot Z08 ENCNTR FOR FOLLOW-UP EXAM AFTER TRTMT FO 07/10/2015 DOROTEO PRINCE N Ot Z79.899 OTHER MAGNAFLUX OPERATOR (CURRENT) DRUG THERAPY 07/10/2015 DOROTEO PRINCE Ot Z85.89 PERSONAL HISTORY OF MALIGNANT NEOPLASM O 07/30/2015 DOROTEO PRINCE Ot E11.22 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 07/30/2015 DOROTEO PRINCE Ot N18.3 CHRONIC KIDNEY DISEASE, STAGE 3 (MODERAT 07/30/2015 DOROTEO PRINCE Ot Z08 ENCNTR FOR FOLLOW-UP EXAM AFTER TRTMT FO 07/30/2015 DOROTEO PRINCE Ot Z79.899 OTHER NURSING HOME (CURRENT) DRUG THERAPY 07/30/2015 DOROTEO PRINCE Ot Z85.89 PERSONAL HISTORY OF MALIGNANT NEOPLASM O 08/22/2015 Ot 250.00 DIAB ROBB WO COMPL, TYPE II OR UNSPEC TY 08/22/2015 Ot 585.3 CHRONIC KIDNEY DISEASE, STAGE III (MODER 08/22/2015 Ot V10.91 PERSONAL HISTORY OF MALIGNANT NEUROENDOC 08/22/2015 Ot V58.69 OTH MED,LT,CURRENT USE 08/22/2015 Ot V67.09 SURGERY FOLLOW- UP, OTHER SURGERY 08/22/2015 Ot 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 08/22/2015 Ot V72.84 EXAM PRE-OPERATIVE NOS 08/22/2015 Ot 250.00 DIAB ROBB WO COMPL, TYPE II OR UNSPEC TY 08/22/2015 Ot 401.9 HYPERTENSION NOS 08/22/2015 Ot V10.06 HX-RECTAL ANAL MALIGN 08/22/2015 Ot V67.09 SURGERY FOLLOW- UP, OTHER SURGERY 08/22/2015 GISSELLE DONOHUE MD Ot 427.61 ATRIAL PREMATURE BEATS 08/22/2015 GISSELLE DONOHUE MD Ot 427.89 CARDIAC DYSRHYTHMIAS NEC 08/22/2015 GISSELLE DONOHUE MD Ot 305.1 TOBACCO USE DISORDER 08/22/2015 GISSELLE DONOHUE MD Ot 397.0 TRICUSPID VALVE DISEASE 08/22/2015 GISSELLE DONOHUE MD Ot 401.9 HYPERTENSION NOS 08/22/2015 GISSELLE DONOHUE MD Ot 424.0 MITRAL VALVE DISORDER 08/22/2015 GISSELLE DONOHUE MD Ot 427.69 PREMATURE BEATS NEC 08/22/2015 GISSELLE DONOHUE MD Ot 427.9 CARDIAC DYSRHYTHMIA NOS 08/22/2015 Ot 785.1 PALPITATIONS 08/22/2015 NIGEL COSTA MD Ot 574.20 CHOLELITHIASIS NOS 08/22/2015 IGOR WEI, NIGEL Antunez Ot 599.70 HEMATURIA, UNSPECIFIED 08/22/2015 GISSELLE DONOHUE MD Ot 250.00 DIAB ROBB WO COMPL, TYPE II OR UNSPEC TY 08/22/2015 GISSELLE DONOHUE MD Ot 272.4 HYPERLIPIDEMIA NEC/NOS 08/22/2015 GISSELLE DONOHUE MD Ot 401.9 HYPERTENSION NOS 08/22/2015 GISSELLE DONOHUE MD Ot 427.0 PAROX ATRIAL TACHYCARDIA 08/22/2015 GISSELLE DONOHUE MD Ot 427.31 ATRIAL FIBRILLATION 08/22/2015 GISSELLE DONOHUE MD Ot V58.61 ANTICOAGULANTS,LT,CURRENT USE 08/22/2015 GISSELLE DONOHUE MD Ot V58.69 OTH MED,LT,CURRENT USE 08/22/2015 DOROTEO PRINCE Ot E11.22 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 08/22/2015 DOROTEO PRINCE Ot N18.3 CHRONIC KIDNEY DISEASE, STAGE 3 (MODERAT 08/22/2015 DOROTEO PRINCE Ot Z08 ENCNTR FOR FOLLOW-UP EXAM AFTER TRTMT FO 08/22/2015 DOROTEO PRINCE Ot Z79.899 OTHER NURSING HOME (CURRENT) DRUG THERAPY 08/22/2015 DOROTEO PRINCE Ot Z85.89 PERSONAL HISTORY OF MALIGNANT NEOPLASM O 08/23/2015 DONNA MEDINA Ot J18.9 PNEUMONIA, UNSPECIFIED ORGANISM 08/23/2015 DONNA MEDINA Ot I48.0 PAROXYSMAL ATRIAL FIBRILLATION 08/23/2015 DONNA MEDINA Ot I51.7 CARDIOMEGALY 08/23/2015 DONNA MEDINA Ot 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 08/23/2015 DONNA MEDINA Ot N18.3 CHRONIC KIDNEY DISEASE, STAGE 3 (MODERAT 09/16/2015 CHARLES WARE MD, Ot K21.9 GASTRO-ESOPHAGEAL REFLUX DISEASE WITHOUT 09/16/2015 CHARLES WARE MD, Ot Z01.818 ENCOUNTER FOR OTHER PREPROCEDURAL EXAMIN 09/16/2015 KIDO MD, TAKAAKI Ot Z01.818 ENCOUNTER FOR OTHER PREPROCEDURAL EXAMIN 09/17/2015 CHARLES WARE MD Ot Z01.818 ENCOUNTER FOR OTHER PREPROCEDURAL EXAMIN 09/17/2015 CHARLES WARE MD Ot Z01.818 ENCOUNTER FOR OTHER PREPROCEDURAL EXAMIN 09/18/2015 Ot 785.1 PALPITATIONS 09/18/2015 DOROTEO PRINCE Ot E11.22 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 09/18/2015 DOROTEO PRINCE Ot N18.3 CHRONIC KIDNEY DISEASE, STAGE 3 (MODERAT 09/18/2015 DOROTEO PRINCE Ot Z08 ENCNTR FOR FOLLOW-UP EXAM AFTER TRTMT FO 09/18/2015 DOROTEO PRINCE Ot Z79.899 OTHER MAGNAFLUX OPERATOR (CURRENT) DRUG THERAPY 09/18/2015 DOROTEO PRINCE Ot Z85.89 PERSONAL HISTORY OF MALIGNANT NEOPLASM O 09/18/2015 CHARLES WARE MD Ot Z01.818 ENCOUNTER FOR OTHER PREPROCEDURAL EXAMIN 09/18/2015 CHARLES WARE MD Ot Z01.818 ENCOUNTER FOR OTHER PREPROCEDURAL EXAMIN 09/18/2015 CHARLES WARE MD Ot E11.9 TYPE 2 DIABETES MELLITUS WITHOUT COMPLIC 09/18/2015 CHRALES WARE MD Ot I10 ESSENTIAL (PRIMARY) HYPERTENSION 09/18/2015 CHARLES WARE MD Ot I48.91 UNSPECIFIED ATRIAL FIBRILLATION 09/18/2015 CHARLES WARE MD Ot K62.1 RECTAL POLYP 09/18/2015 CHARLES WARE MD Ot K64.1 SECOND DEGREE HEMORRHOIDS 09/18/2015 CHARLES WARE MD Ot Z79.899 OTHER NURSING HOME (CURRENT) DRUG THERAPY 09/18/2015 CHARLES WARE MD Ot Z85.89 PERSONAL HISTORY OF MALIGNANT NEOPLASM O 09/18/2015 CHARLES WARE MD Ot Z87.891 PERSONAL HISTORY OF NICOTINE DEPENDENCE 09/19/2015 CHARLES WARE MD Ot E11.9 TYPE 2 DIABETES MELLITUS WITHOUT COMPLIC 09/19/2015 CHARLES WARE MD Ot I10 ESSENTIAL (PRIMARY) HYPERTENSION 09/19/2015 CHARLES WARE MD Ot I48.91 UNSPECIFIED ATRIAL FIBRILLATION 09/19/2015 CHARLES WARE MD Ot K62.1 RECTAL POLYP 09/19/2015 CHARLES WARE MD Ot K64.1 SECOND DEGREE HEMORRHOIDS 09/19/2015 CHARLES WARE MD, Ot Z79.899 OTHER NURSING HOME (CURRENT) DRUG THERAPY 09/19/2015 CHARLES WARE MD, Ot Z85.89 PERSONAL HISTORY OF MALIGNANT NEOPLASM O 09/19/2015 CHARLES WARE MD, Ot Z87.891 PERSONAL HISTORY OF NICOTINE DEPENDENCE 09/20/2015 DONNA MEDINA Ot I48.0 PAROXYSMAL ATRIAL FIBRILLATION 09/20/2015 DONNA MEDINA Ot I51.7 CARDIOMEGALY 09/20/2015 DONNA MEDINA Ot 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 09/20/2015 DONNA MEDINA Ot N18.3 CHRONIC KIDNEY DISEASE, STAGE 3 (MODERAT 09/24/2015 CHARLES WARE MD Ot E11.9 TYPE 2 DIABETES MELLITUS WITHOUT COMPLIC 09/24/2015 CHARLES WARE MD Ot I10 ESSENTIAL (PRIMARY) HYPERTENSION 09/24/2015 CHARLES WARE MD Ot I48.91 UNSPECIFIED ATRIAL FIBRILLATION 09/24/2015 CHARLES WARE MD Ot K62.1 RECTAL POLYP 09/24/2015 CHARLES WARE MD Ot K64.1 SECOND DEGREE HEMORRHOIDS 09/24/2015 CHARLES WARE MD, Ot Z79.899 OTHER MAGNAFLUX OPERATOR (CURRENT) DRUG THERAPY 09/24/2015 CHARLES WARE MD, Ot Z85.89 PERSONAL HISTORY OF MALIGNANT NEOPLASM O 09/24/2015 CHARLES WARE MD, Ot Z87.891 PERSONAL HISTORY OF NICOTINE DEPENDENCE 10/07/2015 DONNA MEDINA Ot I48.0 PAROXYSMAL ATRIAL FIBRILLATION 10/07/2015 DONNA MEDINA Ot I51.7 CARDIOMEGALY 10/07/2015 DONNA MEDINA Ot 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 10/07/2015 DONNA MEDINA Ot N18.3 CHRONIC KIDNEY DISEASE, STAGE 3 (MODERAT 12/22/2015 ERROL LEVI DO Ot E11.9 TYPE 2 DIABETES MELLITUS WITHOUT COMPLIC 12/22/2015 ERROL LEVI DO Ot I10 ESSENTIAL (PRIMARY) HYPERTENSION 12/22/2015 ERROL LEVI DO Ot I48.2 CHRONIC ATRIAL FIBRILLATION 12/22/2015 ERROL LEVI DO Ot J06.9 ACUTE UPPER RESPIRATORY INFECTION, UNSPE 12/22/2015 ERROL LEVI DO Ot R05 COUGH 12/22/2015 ERROL LEVI DO Ot Z79.84 NURSING HOME (CURRENT) USE OF ORAL HYPOGLYC 12/22/2015 ERROL LEVI DO Ot Z79.899 OTHER MAGNAFLUX OPERATOR (CURRENT) DRUG THERAPY 12/22/2015 ERROL LEVI DO Ot Z87.891 PERSONAL HISTORY OF NICOTINE DEPENDENCE 12/22/2015 Ot 250.00 DIAB ROBB WO COMPL, TYPE II OR UNSPEC TY 12/22/2015 Ot 585.3 CHRONIC KIDNEY DISEASE, STAGE III (MODER 12/22/2015 Ot V10.91 PERSONAL HISTORY OF MALIGNANT NEUROENDOC 12/22/2015 Ot V58.69 OTH MED,LT,CURRENT USE 12/22/2015 Ot V67.09 SURGERY FOLLOW- UP, OTHER SURGERY 12/22/2015 Ot 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 12/22/2015 Ot V72.84 EXAM PRE-OPERATIVE NOS 12/22/2015 Ot 250.00 DIAB ROBB WO COMPL, TYPE II OR UNSPEC TY 12/22/2015 Ot 401.9 HYPERTENSION NOS 12/22/2015 Ot V10.06 HX-RECTAL ANAL MALIGN 12/22/2015 Ot V67.09 SURGERY FOLLOW- UP, OTHER SURGERY 12/22/2015 GISSELLE DONOHUE MD Ot 427.61 ATRIAL PREMATURE BEATS 12/22/2015 GISSELLE DONOHUE MD Ot 427.89 CARDIAC DYSRHYTHMIAS NEC 12/22/2015 GISSELLE DONOHUE MD Ot 305.1 TOBACCO USE DISORDER 12/22/2015 GISSELLE DONOHUE MD Ot 397.0 TRICUSPID VALVE DISEASE 12/22/2015 GISSELLE DONOHUE MD Ot 401.9 HYPERTENSION NOS 12/22/2015 GISSELLE DONOHUE MD Ot 424.0 MITRAL VALVE DISORDER 12/22/2015 GISSELLE DONOHUE MD Ot 427.69 PREMATURE BEATS NEC 12/22/2015 GISSELLE DONOHUE MD Ot 427.9 CARDIAC DYSRHYTHMIA NOS 12/22/2015 Ot 785.1 PALPITATIONS 12/22/2015 NIGEL COSTA MD Ot 574.20 CHOLELITHIASIS NOS 12/22/2015 IGOR WEI, NIGEL Antunez Ot 599.70 HEMATURIA, UNSPECIFIED 12/22/2015 GISSELLE DONOHUE MD Ot 250.00 DIAB ROBB WO COMPL, TYPE II OR UNSPEC TY 12/22/2015 GISSELLE DONOHUE MD Ot 272.4 HYPERLIPIDEMIA NEC/NOS 12/22/2015 GISSELLE DONOHUE MD Ot 401.9 HYPERTENSION NOS 12/22/2015 GISSELLE DONOHUE MD Ot 427.0 PAROX ATRIAL TACHYCARDIA 12/22/2015 GISSELLE DONOHUE MD Ot 427.31 ATRIAL FIBRILLATION 12/22/2015 GISSELLE DONOHUE MD Ot V58.61 ANTICOAGULANTS,LT,CURRENT USE 12/22/2015 GISSELLE DONOHUE MD Ot V58.69 OTH MED,LT,CURRENT USE 12/22/2015 DOROTEO PRINCE Ot E11.22 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 12/22/2015 DOROTEO PRINCE Ot N18.3 CHRONIC KIDNEY DISEASE, STAGE 3 (MODERAT 12/22/2015 DOROTEO PRINCE Ot Z08 ENCNTR FOR FOLLOW-UP EXAM AFTER TRTMT FO 12/22/2015 DOROTEO PRINCE Ot Z79.899 OTHER NURSING HOME (CURRENT) DRUG THERAPY 12/22/2015 DOROTEO PRINCE Ot Z85.89 PERSONAL HISTORY OF MALIGNANT NEOPLASM O 12/22/2015 DONNA MEDINA Ot I48.0 PAROXYSMAL ATRIAL FIBRILLATION 12/22/2015 DONNA MEDINA Ot I51.7 CARDIOMEGALY 12/22/2015 DONNA MEDINA Ot 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 12/22/2015 DONNA MEDINA Ot N18.3 CHRONIC KIDNEY DISEASE, STAGE 3 (MODERAT 12/24/2015 ERROL LEVI DO Ot E11.9 TYPE 2 DIABETES MELLITUS WITHOUT COMPLIC 12/24/2015 ERROL LEVI DO Ot I10 ESSENTIAL (PRIMARY) HYPERTENSION 12/24/2015 ERROL LEVI DO Ot I48.2 CHRONIC ATRIAL FIBRILLATION 12/24/2015 ERROL LEVI DO Ot J06.9 ACUTE UPPER RESPIRATORY INFECTION, UNSPE 12/24/2015 ERROL LEVI DO Ot R05 COUGH 12/24/2015 ERROL LEVI DO Ot Z79.84 NURSING HOME (CURRENT) USE OF ORAL HYPOGLYC 12/24/2015 ERROL LEVI DO Ot Z79.899 OTHER MAGNAFLUX OPERATOR (CURRENT) DRUG THERAPY 12/24/2015 ERROL LEVI DO Ot Z87.891 PERSONAL HISTORY OF NICOTINE DEPENDENCE 05/01/2016 LADONNA RODRIGUEZ MD Ot K76.0 FATTY (CHANGE OF) LIVER, NOT ELSEWHERE C 05/01/2016 LADONNA RODRIGUEZ MD Ot K80.20 CALCULUS OF GALLBLADDER W/O CHOLECYSTITI 05/22/2016 LADONNA RODRIGUEZ MD, Ot K76.0 FATTY (CHANGE OF) LIVER, NOT ELSEWHERE C 05/22/2016 LADONNA RODRIGUEZ MD Ot K80.20 CALCULUS OF GALLBLADDER W/O CHOLECYSTITI 05/29/2016 LADONNA RODRIGUEZ MD Ot K76.0 FATTY (CHANGE OF) LIVER, NOT ELSEWHERE C 05/29/2016 LADONNA RODRIGUEZ MD Ot K80.20 CALCULUS OF GALLBLADDER W/O CHOLECYSTITI 06/01/2016 DOROTEO PRINCE Ot E11.22 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 06/01/2016 DOROTEO PRINCE Ot N18.3 CHRONIC KIDNEY DISEASE, STAGE 3 (MODERAT 06/01/2016 DOROTEO PRINCE Ot Z08 ENCNTR FOR FOLLOW-UP EXAM AFTER TRTMT FO 06/01/2016 DOROTEO PRINCE Ot Z79.899 OTHER NURSING HOME (CURRENT) DRUG THERAPY 06/01/2016 DOROTEO PRINCE Ot Z85.89 PERSONAL HISTORY OF MALIGNANT NEOPLASM O 06/23/2016 DOROTEO PRINCE Ot 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 06/23/2016 DOROTEO PRINCE Ot R97.8 OTHER ABNORMAL TUMOR MARKERS 06/25/2016 DOROTEO PRINCE Ot 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 06/25/2016 DOROTEO PRINCE Ot R97.8 OTHER ABNORMAL TUMOR MARKERS 07/08/2016 DOROTEO PRINCE Ot E11.22 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 07/08/2016 NIKI, BOBAN N Ot N18.3 CHRONIC KIDNEY DISEASE, STAGE 3 (MODERAT 07/08/2016 DOROTEO PRINCE N Ot Z08 ENCNTR FOR FOLLOW-UP EXAM AFTER TRTMT FO 07/08/2016 DOROTEO PRINCE N Ot Z79.899 OTHER MAGNAFLUX OPERATOR (CURRENT) DRUG THERAPY 07/08/2016 DOROTEO PRINEC N Ot Z85.89 PERSONAL HISTORY OF MALIGNANT NEOPLASM O 07/28/2016 DOROTEO PRINCE N Ot E11.22 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 07/28/2016 DOROTEO PRINCE N Ot N18.3 CHRONIC KIDNEY DISEASE, STAGE 3 (MODERAT 07/28/2016 DOROTEO PRINCE N Ot Z08 ENCNTR FOR FOLLOW-UP EXAM AFTER TRTMT FO 07/28/2016 DOROTEO PRINCE N Ot Z79.899 OTHER NURSING HOME (CURRENT) DRUG THERAPY 07/28/2016 DOROTEO PRINCE N Ot Z85.89 PERSONAL HISTORY OF MALIGNANT NEOPLASM O 07/29/2016 DOROTEO PRINCE N Ot E11.22 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 07/29/2016 DOROTEO PRINCE N Ot N18.3 CHRONIC KIDNEY DISEASE, STAGE 3 (MODERAT 07/29/2016 DOROTEO PRINCE N Ot Z08 ENCNTR FOR FOLLOW-UP EXAM AFTER TRTMT FO 07/29/2016 DOROTEO PRINCE N Ot Z79.899 OTHER MAGNAFLUX OPERATOR (CURRENT) DRUG THERAPY 07/29/2016 DOROTEO PRINCE N Ot Z85.89 PERSONAL HISTORY OF MALIGNANT NEOPLASM O 12/16/2016 GISSELLE DONOHUE MD Ot E78.2 MIXED HYPERLIPIDEMIA 12/16/2016 GISSELLE DONOHUE MD Ot I10 ESSENTIAL (PRIMARY) HYPERTENSION 12/16/2016 GISSELLE DONOHUE MD Ot I48.0 PAROXYSMAL ATRIAL FIBRILLATION 12/16/2016 GISSELLE DONOHUE MD Ot I51.7 CARDIOMEGALY 12/16/2016 GISSELLE DONOHUE MD Ot 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 12/16/2016 GISSELLE DONOHUE MD Ot E78.2 MIXED HYPERLIPIDEMIA 12/16/2016 GISSELLE DONOHUE MD Ot I10 ESSENTIAL (PRIMARY) HYPERTENSION 12/16/2016 GISSELLE DONOHUE MD Ot I48.0 PAROXYSMAL ATRIAL FIBRILLATION 12/16/2016 GISSELLE DONOHUE MD Ot I51.7 CARDIOMEGALY 12/16/2016 GISSELLE DONOHUE MD Ot 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 01/05/2017 GISSELLE DONOHUE MD Ot E78.2 MIXED HYPERLIPIDEMIA 01/05/2017 GISSELLE DONOHUE MD Ot I10 ESSENTIAL (PRIMARY) HYPERTENSION 01/05/2017 GISSELLE DONOHUE MD Ot I48.0 PAROXYSMAL ATRIAL FIBRILLATION 01/05/2017 GISSELLE DONOHUE MD Ot I51.7 CARDIOMEGALY 01/05/2017 GISSELLE DONOHUE MD Ot 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 01/07/2017 GISSELLE DONOHUE MD Ot E78.2 MIXED HYPERLIPIDEMIA 01/07/2017 GISSELLE DONOHUE MD Ot I10 ESSENTIAL (PRIMARY) HYPERTENSION 01/07/2017 GISSELLE DONOHUE MD Ot I48.0 PAROXYSMAL ATRIAL FIBRILLATION 01/07/2017 GISSELLE DONOHUE MD Ot I51.7 CARDIOMEGALY 01/07/2017 GISSELLE DONOHUE MD Ot 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 06/02/2017 DOROTEO PRINCE Ot 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 07/07/2017 DOROTEO PRINCE Ot 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 08/03/2017 DOROTEO PRINCE Ot 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 08/09/2017 DOROTEO PRINCE Ot 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 05/02/2018 GISSELLE DONOHUE MD Ot 427.61 ATRIAL PREMATURE BEATS 05/02/2018 GISSELLE DONOHUE MD Ot 427.89 CARDIAC DYSRHYTHMIAS NEC 05/02/2018 GISSELLE DONOHUE MD Ot 305.1 TOBACCO USE DISORDER 05/02/2018 GISSELLE DONOHUE MD Ot 397.0 TRICUSPID VALVE DISEASE 05/02/2018 GISSELLE DONOHUE MD Ot 401.9 HYPERTENSION NOS 05/02/2018 GISSELLE DONOHUE MD Ot 424.0 MITRAL VALVE DISORDER 05/02/2018 GISSELLE DONOHUE MD Ot 427.69 PREMATURE BEATS NEC 05/02/2018 GISSELLE DONOHUE MD Ot 427.9 CARDIAC DYSRHYTHMIA NOS 05/02/2018 Ot 785.1 PALPITATIONS 05/02/2018 IGOR WEI, NIGEL Antunez Ot 574.20 CHOLELITHIASIS NOS 05/02/2018 IGOR WEI, NIGEL Antunez Ot 599.70 HEMATURIA, UNSPECIFIED 05/02/2018 GISSELLE DONOHUE MD Ot 250.00 DIAB ROBB WO COMPL, TYPE II OR UNSPEC TY 05/02/2018 GISSELLE DONOHUE MD Ot 272.4 HYPERLIPIDEMIA NEC/NOS 05/02/2018 GISSELLE DONOHUE MD Ot 401.9 HYPERTENSION NOS 05/02/2018 GISSELLE DONOHUE MD Ot 427.0 PAROX ATRIAL TACHYCARDIA 05/02/2018 GISSELLE DONOHUE MD Ot 427.31 ATRIAL FIBRILLATION 05/02/2018 GISSELLE DONOHUE MD Ot V58.61 ANTICOAGULANTS,LT,CURRENT USE 05/02/2018 GISSELLE DONOHUE MD Ot V58.69 OTH MED,LT,CURRENT USE 05/02/2018 DONNA MEDINA Ot I48.0 PAROXYSMAL ATRIAL FIBRILLATION 05/02/2018 DONNA MEDINA Ot I51.7 CARDIOMEGALY 05/02/2018 DONNA MEDINA Ot 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 05/02/2018 DONNA MEDINA Ot N18.3 CHRONIC KIDNEY DISEASE, STAGE 3 (MODERAT 05/02/2018 LADONNA RODRIGUEZ MD Ot K76.0 FATTY (CHANGE OF) LIVER, NOT ELSEWHERE C 05/02/2018 LADONNA RODRIGUEZ MD Ot K80.20 CALCULUS OF GALLBLADDER W/O CHOLECYSTITI 05/02/2018 DOROTEO PRINCE Ot 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 05/02/2018 DOROTEO PRINCE Ot R97.8 OTHER ABNORMAL TUMOR MARKERS 05/02/2018 GISSELLE DONOHUE MD Ot E78.2 MIXED HYPERLIPIDEMIA 05/02/2018 GISSELLE DONOHUE MD Ot I10 ESSENTIAL (PRIMARY) HYPERTENSION 05/02/2018 GISSELLE DONOHUE MD Ot I48.0 PAROXYSMAL ATRIAL FIBRILLATION 05/02/2018 GISSELLE DONOHUE MD Ot I51.7 CARDIOMEGALY 05/02/2018 GISSELLE DONOHUE MD Ot 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 05/02/2018 DOROTEO PRINCE Ot 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 05/03/2018 DOROTEO PRINCE Ot 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 06/16/2018 Ot 785.1 PALPITATIONS 06/16/2018 NIEGL COSTA MD Ot 574.20 CHOLELITHIASIS NOS 06/16/2018 NIGEL COSTA MD Ot 599.70 HEMATURIA, UNSPECIFIED 06/16/2018 GISSELLE DONOHUE MD Ot 250.00 DIAB ROBB WO COMPL, TYPE II OR UNSPEC TY 06/16/2018 GISSELLE DONOHUE MD Ot 272.4 HYPERLIPIDEMIA NEC/NOS 06/16/2018 GISSELLE DONOHUE MD Ot 401.9 HYPERTENSION NOS 06/16/2018 GISSELLE DONOHUE MD Ot 427.0 PAROX ATRIAL TACHYCARDIA 06/16/2018 GISSELLE DONOHUE MD Ot 427.31 ATRIAL FIBRILLATION 06/16/2018 GISSELLE DONOHUE MD Ot V58.61 ANTICOAGULANTS,LT,CURRENT USE 06/16/2018 GISSELLE DONOHUE MD Ot V58.69 OTH MED,LT,CURRENT USE 06/16/2018 DONNA MEDINA Ot I48.0 PAROXYSMAL ATRIAL FIBRILLATION 06/16/2018 DONNA MEDINA Ot I51.7 CARDIOMEGALY 06/16/2018 DONNA MEDINA Ot 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 06/16/2018 DONNA MEDINA Ot N18.3 CHRONIC KIDNEY DISEASE, STAGE 3 (MODERAT 06/16/2018 LADONNA RODRIGUEZ MD Ot K76.0 FATTY (CHANGE OF) LIVER, NOT ELSEWHERE C 06/16/2018 LADONNA RODRIGUEZ MD Ot K80.20 CALCULUS OF GALLBLADDER W/O CHOLECYSTITI 06/16/2018 DOROTEO PRINCE Ot 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 06/16/2018 DOROTEO PRINCE Ot R97.8 OTHER ABNORMAL TUMOR MARKERS 06/16/2018 GISSELLE DONOHUE MD Ot E78.2 MIXED HYPERLIPIDEMIA 06/16/2018 GISSELLE DONOHUE MD Ot I10 ESSENTIAL (PRIMARY) HYPERTENSION 06/16/2018 GISSELLE DONOHUE MD Ot I48.0 PAROXYSMAL ATRIAL FIBRILLATION 06/16/2018 GISSELLE DONOHUE MD Ot I51.7 CARDIOMEGALY 06/16/2018 GISSELLE DONOHUE MD Ot 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 06/16/2018 DOROTEO PRINCE Karine Ot 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 06/16/2018 DOROTEO PRINCE Karine Ot E11.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0 PAROX ATRIAL TACHYCARDIA 07/22/2018 GISSELLE DONOHUE MD Ot 427.31 ATRIAL FIBRILLATION 07/22/2018 GISSELLE DONOHUE MD Ot V58.61 ANTICOAGULANTS,LT,CURRENT USE 07/22/2018 GISSELLE DONOHUE MD Ot V58.69 OTH MED,LT,CURRENT USE 07/22/2018 DONNA MEDINA Ot I48.0 PAROXYSMAL ATRIAL FIBRILLATION 07/22/2018 DONNA MEDINA Ot I51.7 CARDIOMEGALY 07/22/2018 DONNA MEDINA Ot 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 07/22/2018 DONNA MEDINA Ot N18.3 CHRONIC KIDNEY DISEASE, STAGE 3 (MODERAT 07/22/2018 LADONNA RODRIGUEZ MD Ot K76.0 FATTY (CHANGE OF) LIVER, NOT ELSEWHERE C 07/22/2018 LADONNA RODRIGUEZ MD Ot K80.20 CALCULUS OF GALLBLADDER W/O CHOLECYSTITI 07/22/2018 DOROTEO PRINCE Ot 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 07/22/2018 DOROTEO PRINCE Ot R97.8 OTHER ABNORMAL TUMOR MARKERS 07/22/2018 GISSELLE DONOHUE MD Ot E78.2 MIXED HYPERLIPIDEMIA 07/22/2018 GISSELLE DONOHUE MD Ot I10 ESSENTIAL (PRIMARY) HYPERTENSION 07/22/2018 GISSELLE DONOHUE MD Ot I48.0 PAROXYSMAL ATRIAL FIBRILLATION 07/22/2018 GISSELLE DONOHUE MD Ot I51.7 CARDIOMEGALY 07/22/2018 GISSELLE DONOHUE MD Ot 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 Results Test Result Range Influenza virus A and B antigen detection - 12/22/15 08:50 FLU RESULT NEGATIVE FOR INFLUENZA A AND B ANTIGENS BY IA NRG Encounters ACCT No. Visit Date/Time Discharge Status Pt. Type Provider Facility Loc./Unit Complaint [id number] 07/21/2018 12:45:00 07/21/2018 23:59:59 CLS Preadmit GISSELLE DONOHUE MD Via [facility] RAD CAROTID ARTERY BRUIT [id number] 05/09/2018 09:48:00 05/09/2018 23:59:59 CLS Outpatient DOROTEO PRINCE Via [facility] ONC [id number] 05/12/2017 08:33:00 08/03/2017 00:01:00 DIS Outpatient DOROTEO PRINCE Via [facility] ONC [id number] 12/07/2016 08:26:00 12/07/2016 23:59:59 CLS Outpatient GISSELLE DONOHUE MD [facility] RAD AFIB [id number] 05/21/2016 09:27:00 07/28/2016 00:01:00 DIS Outpatient DOROTEO PRINCE [facility] ONC [id number] 05/21/2016 11:23:00 05/21/2016 23:59:59 CLS Outpatient DOROTEO PRINCE Via [facility] RAD D3A.026 [id number] 05/01/2016 09:02:00 05/01/2016 23:59:59 CLS Outpatient LADONNA RODRIGUEZ MD [facility] RAD ELEVATED LIVER ENZYMES [id number] 12/22/2015 08:29:00 12/22/2015 10:08:00 DIS Emergency AMITA DO, ERROL K [facility] ER ACHING BODY/CONGESTION [id number] 09/18/2015 09:33:00 09/18/2015 12:55:00 DIS Outpatient CHARLES WARE MD [facility] SDC HISTORY OF RECTAL CARCINOID TUMOR [id number] 09/17/2015 09:00:00 09/17/2015 09:04:00 DIS Outpatient CHARLES WARE MD [facility] PREOP HX RECTAL CARCINOID TUMOR [id number] 08/22/2015 11:41:00 08/22/2015 23:59:59 CLS Outpatient DONNA MEDINA [facility] CARD AFIB, CKD, SANTO, LEFT ATRIAL ENLARGEMENT [id number] 05/13/2015 08:50:00 07/30/2015 00:01:00 DIS Outpatient DOROTEO PRINCE [facility] ONC [id number] 10/25/2014 12:47:00 11/07/2014 00:01:00 DIS Outpatient DOROTEO PRINCE [facility] ONC [id number] 10/26/2013 12:54:00 01/14/2014 00:01:00 DIS Outpatient DOROTEO PRINCE [facility] ONC [id number] 12/29/2013 11:13:00 12/29/2013 23:59:59 CLS Outpatient GISSELLE DONOHUE MD [facility] CATH AFIB,PALPITATIONS,HTN [id number] 02/14/2013 10:10:00 02/14/2013 23:59:59 CLS Outpatient NIGEL COSTA MD [facility] RAD HEMATURIA [id number] 10/31/2012 09:59:00 01/29/2013 00:01:00 DIS Outpatient LADONNA RODRIGUEZ MD [facility] CARD PALPITATIONS [id number] 10/27/2012 12:48:00 01/15/2013 00:01:00 DIS Outpatient DOROTEO PRINCE [facility] ONC [id number] 11/28/2012 07:27:00 11/28/2012 23:59:59 CLS Outpatient GISSELLE DONOHUE MD [facility] RAD HTN,ABN HEART RYTHM [id number] 11/23/2012 08:20:00 11/23/2012 23:59:59 CLS Outpatient GISSELLE DONOHUE MD [facility] CARD HTN [id number] 07/27/2018 09:30:00 PEN Preadmit GISSELLE DONOHUE MD [facility] CATH AFIB [id number] 04/14/2014 09:13:00 Document Registration [id number] 01/30/2013 10:00:00 Document Registration [id number] 04/20/2012 12:52:00 Document Registration [id number] 10/26/2011 09:10:00 Document Registration [id number] 06/08/2011 10:27:00 Document Registration [id number] 06/04/2011 10:53:00 Document Registration [id number] 05/05/2011 09:34:00 Document Registration [id number] 10/20/2010 09:44:00 Document Registration [id number] 10/16/2010 08:51:00 Document Registration [id number] 04/07/2010 10:07:00 Document Registration [id number] 03/31/2010 06:40:00 Document Registration [id number] 02/10/2010 08:19:00 Document Registration [id number] 01/13/2010 06:19:00 Document Registration
== END | disposition home or self-care (01) ==
LOC: CATH 08:55
PROVIDERS: ATTEND Internal Medicine Cardiovascular Disease
DX: I48.0 Paroxysmal atrial fibrillation (principal); I12.9 Hypertensive chronic kidney disease with stage 1 through stage 4 chronic kidney disease, or unspecified chronic kidney disease; N18.9 Chronic kidney disease, unspecified; E78.5 Hyperlipidemia, unspecified; E11.9 Type 2 diabetes mellitus without complications; I65.23 Occlusion and stenosis of bilateral carotid arteries; R00.2 Palpitations; I47.1 Supraventricular tachycardia; H91.90 Unspecified hearing loss, unspecified ear; Z79.899 Other long term (current) drug therapy; Z79.84 Long term (current) use of oral hypoglycemic drugs; Z79.82 Long term (current) use of aspirin; Z87.891 Personal history of nicotine dependence; Z85.038 Personal history of other malignant neoplasm of large intestine
CPT/HCPCS: 33285

== ENCOUNTER → 2018-09-13 | Outpatient (CLI) | payer MEDICARE ==
[~2018-09-13] MED LIST changes: -LIDOCAINE 1% INJ 20 ML 20 ML VIAL ONE
--- NOTE | 2018-09-13 13:51 | Diagnostic Imaging Report ---
INDICATION: Elevated liver function tests. TECHNIQUE: Multiple grayscale sonographic images were obtained of the right upper quadrant of the abdomen. CORRELATION STUDY: 05/01/2016 FINDINGS: LIVER: There is diffusely increased echotexture within the visualized portions of the liver. There is normal, hepatopedal direction of flow within the main portal vein. Liver length 18.4 cm. GALLBLADDER: Multiple shadowing gallstones. No gallbladder wall thickening or pericholecystic fluid. COMMON BILE DUCT: Nondilated at 5 mm. PANCREAS: Visualized portions appearing unremarkable. RIGHT KIDNEY: Measures 10.3 x 4.9 x 5.0 cm. No hydronephrosis. AORTA/IVC: Not well visualized. OTHER: None. IMPRESSION: 1. Hepatic steatosis. 2. Cholelithiasis. Dictated by: Dictated on workstation # [id number]
== END ==
LOC: RAD 08:06
PROVIDERS: ATTEND Internal Medicine
DX: K76.0 Fatty (change of) liver, not elsewhere classified (principal); K80.20 Calculus of gallbladder without cholecystitis without obstruction
CPT/HCPCS: 76705

== ENCOUNTER → 2018-10-03 | Outpatient (CLI) | payer MEDICARE | LOC: CARD 09:24 | PROVIDERS: ATTEND Internal Medicine Cardiovascular Disease | DX: I48.0 Paroxysmal atrial fibrillation (principal); I10 Essential (primary) hypertension; E11.9 Type 2 diabetes mellitus without complications | CPT/HCPCS: 93351 ==

== ENCOUNTER → 2019-04-18 | Outpatient (CLI) | payer MEDICARE ==
[2019-04-18 14:40] LABS: ALBUMIN 4.3 GM/DL (3.2-4.5); BILIRUBIN,TOTAL 0.4 MG/DL (0.1-1.0); CALCIUM 9.2 MG/DL (8.5-10.1); CREATININE SERUM 1.31 MG/DL (0.60-1.30); POTASSIUM 3.6 MMOL/L (3.6-5.0); TOTAL PROTEIN 7.3 GM/DL (6.4-8.2)
== END ==
LOC: LAB 13:38
PROVIDERS: ATTEND Internal Medicine
DX: E11.9 Type 2 diabetes mellitus without complications (principal); I10 Essential (primary) hypertension
CPT/HCPCS: 36415; 80053; 83036

== ENCOUNTER → 2019-08-08 | Outpatient (CLI) | payer MEDICARE ==
[2019-08-08 11:18] LABS: ALBUMIN 4.1 GM/DL (3.2-4.5); POTASSIUM 3.6 MMOL/L (3.6-5.0)
[2019-08-08 11:19] LABS: CALCIUM 9.1 MG/DL (8.5-10.1)
[2019-08-08 11:21] LABS: TOTAL PROTEIN 7.1 GM/DL (6.4-8.2)
[2019-08-08 11:22] LABS: BILIRUBIN,TOTAL 0.5 MG/DL (0.1-1.0)
[2019-08-08 11:24] LABS: CREATININE SERUM 1.25 MG/DL (0.60-1.30)
== END ==
LOC: LAB 10:41
PROVIDERS: ATTEND Internal Medicine
DX: E11.9 Type 2 diabetes mellitus without complications (principal); I10 Essential (primary) hypertension
CPT/HCPCS: 36415; 80053; 83036

== ENCOUNTER 2019-08-14 09:51 | Outpatient (RCR) | payer MEDICARE ==
[2019-08-08 10:29] LABS: BASOPHILS % (AUTO) 1 % (0-10); EOSINOPHILS # (AUTO) 0.1 10^3/uL (0.0-0.3); EOSINOPHILS % (AUTO) 2 % (0-10); HEMATOCRIT 38 % (40-54); HEMOGLOBIN 13.2 G/DL (13.3-17.7); LYMPHOCYTES # (AUTO) 1.6 X 10^3 (1.0-4.0); LYMPHOCYTES % (AUTO) 34 % (12-44); MEAN CORPUSCULAR HEMOGLOBIN 31 PG (25-34); MEAN CORPUSCULAR HGB CONC 35 G/DL (32-36); MEAN CORPUSCULAR VOLUME 90 FL (80-99); MEAN PLATELET VOLUME 9.6 FL (7.4-10.4); MONOCYTES # (AUTO) 0.5 X 10^3 (0.0-1.0); MONOCYTES % (AUTO) 10 % (0-12); NEUTROPHILS # (AUTO) 2.7 X 10^3 (1.8-7.8); NEUTROPHILS % (AUTO) 54 % (42-75); PLATELET COUNT 172 10^3/uL (130-400); WHITE BLOOD COUNT 4.9 10^3/uL (4.3-11.0)
[2019-08-08 10:51] LABS: ALBUMIN 3.9 GM/DL (3.2-4.5); BILIRUBIN,TOTAL 0.5 MG/DL (0.1-1.0); CALCIUM 8.8 MG/DL (8.5-10.1); CREATININE SERUM 1.24 MG/DL (0.60-1.30); POTASSIUM 3.7 MMOL/L (3.6-5.0); TOTAL PROTEIN 6.6 GM/DL (6.4-8.2)
== END 2019-11-06 | disposition home or self-care (01) ==
LOC: ONC 09:51
PROVIDERS: ATTEND Internal Medicine Hematology & Oncology
DX: D3A.026 Benign carcinoid tumor of the rectum (principal)
CPT/HCPCS: 80053; 83497; 85025; 86316; 99213

== ENCOUNTER → 2019-12-27 | Outpatient (CLI) | payer MEDICARE ==
--- NOTE | 2019-12-28 09:39 | NUR ---
Notified of positive COVID results.
== END ==
LOC: LABNPT 05:20
PROVIDERS: ATTEND Internal Medicine
DX: U07.1 COVID-19 (principal)
CPT/HCPCS: 87635

== ENCOUNTER → 2020-01-24 | Outpatient (CLI) | payer MEDICARE ==
[2020-01-24 08:40] LABS: BASOPHILS % (AUTO) 1 % (0-10); EOSINOPHILS # (AUTO) 0.1 10^3/uL (0.0-0.3); EOSINOPHILS % (AUTO) 3 % (0-10); HEMATOCRIT 38 % (40-54); LYMPHOCYTES # (AUTO) 1.5 10^3/uL (1.0-4.0); LYMPHOCYTES % (AUTO) 32 % (12-44); MEAN CORPUSCULAR HEMOGLOBIN 31 pg (25-34); MEAN CORPUSCULAR HGB CONC 34 g/dL (32-36); MEAN CORPUSCULAR VOLUME 91 fL (80-99); MEAN PLATELET VOLUME 8.8 fL (9.0-12.2); MONOCYTES # (AUTO) 0.5 10^3/uL (0.0-1.0); MONOCYTES % (AUTO) 10 % (0-12); NEUTROPHILS # (AUTO) 2.6 10^3/uL (1.8-7.8); NEUTROPHILS % (AUTO) 55 % (42-75); PLATELET COUNT 174 10^3/uL (130-400); WHITE BLOOD COUNT 4.7 10^3/uL (4.3-11.0)
[2020-01-24 08:49] LABS: ALBUMIN 3.9 GM/DL (3.2-4.5); BILIRUBIN,TOTAL 0.5 MG/DL (0.1-1.0); CALCIUM 8.7 MG/DL (8.5-10.1); CREATININE SERUM 1.16 MG/DL (0.60-1.30); POTASSIUM 3.7 MMOL/L (3.6-5.0)
== END ==
LOC: LAB 08:14
PROVIDERS: ATTEND Internal Medicine
DX: C20 Malignant neoplasm of rectum (principal); E11.9 Type 2 diabetes mellitus without complications; E78.2 Mixed hyperlipidemia; I48.0 Paroxysmal atrial fibrillation; I10 Essential (primary) hypertension
CPT/HCPCS: 36415; 80053; 80061; 83036; 83970; 84153; 84443; 85025

== ENCOUNTER → 2020-05-16 | Outpatient (CLI) | payer MEDICARE ==
[2020-05-16 09:47] LABS: ALBUMIN 4.1 GM/DL (3.2-4.5); BILIRUBIN,TOTAL 0.6 MG/DL (0.1-1.0); CALCIUM 9.1 MG/DL (8.5-10.1); CREATININE SERUM 1.41 MG/DL (0.60-1.30); POTASSIUM 3.8 MMOL/L (3.6-5.0)
== END ==
LOC: LAB 08:59
PROVIDERS: ATTEND Internal Medicine
DX: E11.9 Type 2 diabetes mellitus without complications (principal); I10 Essential (primary) hypertension; E78.5 Hyperlipidemia, unspecified; Z79.899 Other long term (current) drug therapy
CPT/HCPCS: 36415; 80053; 83036

== ENCOUNTER → 2020-08-16 | Outpatient (CLI) | payer MEDICARE ==
[2020-08-16 10:00] LABS: BASOPHILS % (AUTO) 1 % (0-10); EOSINOPHILS # (AUTO) 0.1 10^3/uL (0.0-0.3); EOSINOPHILS % (AUTO) 3 % (0-10); HEMATOCRIT 38 % (40-54); HEMOGLOBIN 13.4 g/dL (13.3-17.7); LYMPHOCYTES # (AUTO) 1.2 10^3/uL (1.0-4.0); LYMPHOCYTES % (AUTO) 28 % (12-44); MEAN CORPUSCULAR HEMOGLOBIN 32 pg (25-34); MEAN CORPUSCULAR HGB CONC 36 g/dL (32-36); MEAN CORPUSCULAR VOLUME 90 fL (80-99); MEAN PLATELET VOLUME 9.4 fL (9.0-12.2); MONOCYTES # (AUTO) 0.4 10^3/uL (0.0-1.0); MONOCYTES % (AUTO) 9 % (0-12); NEUTROPHILS # (AUTO) 2.6 10^3/uL (1.8-7.8); NEUTROPHILS % (AUTO) 59 % (42-75); PLATELET COUNT 165 10^3/uL (130-400); WHITE BLOOD COUNT 4.5 10^3/uL (4.3-11.0)
[2020-08-16 10:22] LABS: ALBUMIN 3.9 GM/DL (3.2-4.5); BILIRUBIN,TOTAL 0.6 MG/DL (0.1-1.0); CALCIUM 9.3 MG/DL (8.5-10.1); CREATININE SERUM 1.3 MG/DL (0.60-1.30); POTASSIUM 3.8 MMOL/L (3.6-5.0); TOTAL PROTEIN 6.8 GM/DL (6.4-8.2)
== END ==
LOC: EDSTATUS 11-07 16:44 → ONC 09:47
PROVIDERS: ATTEND Internal Medicine Hematology & Oncology
DX: D3A.026 Benign carcinoid tumor of the rectum (principal); I48.0 Paroxysmal atrial fibrillation; Z72.0 Tobacco use; E78.2 Mixed hyperlipidemia; E11.22 Type 2 diabetes mellitus with diabetic chronic kidney disease; N18.30 Chronic kidney disease, stage 3 unspecified; I65.29 Occlusion and stenosis of unspecified carotid artery
CPT/HCPCS: 80053; 85025; 86316; G0463; 99213

== ENCOUNTER → 2020-08-19 | Outpatient (CLI) | payer MEDICARE | LOC: ONC 09:10 | PROVIDERS: ATTEND Internal Medicine Hematology & Oncology | DX: D3A.026 Benign carcinoid tumor of the rectum (principal); I48.0 Paroxysmal atrial fibrillation; E11.22 Type 2 diabetes mellitus with diabetic chronic kidney disease; I12.9 Hypertensive chronic kidney disease with stage 1 through stage 4 chronic kidney disease, or unspecified chronic kidney disease; N18.30 Chronic kidney disease, stage 3 unspecified; E78.2 Mixed hyperlipidemia; F41.9 Anxiety disorder, unspecified; Z86.010 Personal history of colon polyps; Z98.890 Other specified postprocedural states; Z72.0 Tobacco use | CPT/HCPCS: 83497 ==

== ENCOUNTER → 2020-09-18 | Outpatient (CLI) | payer MEDICARE ==
[2020-09-18 14:12] LABS: BILIRUBIN,TOTAL 0.6 MG/DL (0.1-1.0); CALCIUM 9.4 MG/DL (8.5-10.1); CREATININE SERUM 1.38 MG/DL (0.60-1.30); POTASSIUM 3.7 MMOL/L (3.6-5.0); TOTAL PROTEIN 7.3 GM/DL (6.4-8.2)
== END ==
LOC: LAB 13:35
PROVIDERS: ATTEND Internal Medicine
DX: E11.9 Type 2 diabetes mellitus without complications (principal); I10 Essential (primary) hypertension; E78.5 Hyperlipidemia, unspecified
CPT/HCPCS: 36415; 80053; 83036

== ENCOUNTER 2021-03-05 09:14 | Outpatient (CLI) | payer MEDICARE ==
[~2021-03-05] VITALS: Ht 180.3 cm; Wt 85.0 kg
[~2021-03-05 09:14] MED LIST changes: +AMLO-251 PO; +ASPI-1238 PO; +FINA5TAB6 PO; +LISI1TAB48 PO; +METF-399 PO; +POTA10CA43 PO; +TMSL.4C PO
== END 2021-03-05 09:35 | disposition home or self-care (01) ==
LOC: PREOP 09:14
PROVIDERS: ATTEND Urology
DX: Z01.818 Encounter for other preprocedural examination (principal)

== ENCOUNTER 2021-03-24 06:13 | Observation (INO) | payer MEDICARE ==
[~2021-03-24] VITALS: Ht 180 cm; Wt 85.0 kg
[2021-03-24] VITALS (12 sets, daily range): BP systolic 136–188; BP diastolic 74–87
[2021-03-24] MEDS ORDERED: cefTRIAXone 1 GM PRE-MIX 50 ML IV NR (07:00)
[2021-03-24] MEDS ORDERED: PROPOFOL INJECTION 50 ML IV ONE (07:02)
[2021-03-24] MEDS ORDERED: MIDAZOLAM 2 MG/2 ML (VERSED) VIAL ONE (07:02)
[2021-03-24] MEDS ORDERED: ONDANSETRON 4 MG/2 ML (SDV) Z0FRAN ONE (07:02)
--- NOTE | 2021-03-24 07:07 | Progress Note-Pre Operative ---
Pre-Operative Progress Note H&P Reviewed The H&P was reviewed, patient examined and no changes noted. Date Seen by Provider: Mar 24, 2021 Time Seen by Provider: 07:06 Date H&P Reviewed: Mar 24, 2021 Time H&P Reviewed: 07:06 Pre-Operative Diagnosis: BPH WITH PROSTATISM AND RETENTION NIGEL COSTA MD Mar 24, 2021 07:07
--- NOTE | 2021-03-24 07:10 | Progress Note-Post Operative ---
Post-Operative Progess Note Surgeon (s)/Health Safety Instructor (s) Surgeon NIGEL COSTA MD Health Safety Instructor: NONE Pre-Operative Diagnosis BPH WITH PROSTATISM AND RETENTION Post-Operative Diagnosis SAME Procedure & Operative Findings Date of Procedure 03/24/21 Procedure Performed/Findings TURP Anesthesia Type SPINAL Estimated Blood Loss Estimated blood loss (mL): LESS THAN 50CC Specimens/Packing Specimens Removed PROSTATE CHIPS Packing: NONE NIGEL COSTA MD Mar 24, 2021 07:10
[2021-03-24] MEDS ORDERED: MILK OF MAGNESIA 400 MG/5 ML 30 ML UDC PO PRN (07:15)
[2021-03-24] MEDS ORDERED: BELLADONNA ALK/OPIUM (B & O) 30 MG SUPP PR PRN (07:15)
[2021-03-24] MEDS ORDERED: LACTATED RINGERS 1,000 ML IV PRN (07:15)
[2021-03-24] MEDS: LACTATED RINGERS 1,000 ML IV SCH ×4 (08:09→23:23)
[2021-03-24] MEDS ORDERED: morphine INJ 10 MG/ML 1ML (SYR OR VIAL) IVP ONE (08:45)
[2021-03-24] MEDS ORDERED: ONDANSETRON 4 MG/2 ML (SDV) Z0FRAN IVP PRN (08:45)
[2021-03-24] MEDS: DOCUSATE SODIUM 100 MG (COLACE) CAP PO SCH ×2 (09:58→19:31)
--- NOTE | 2021-03-24 13:19 | OPERATIVE REPORT ---
DATE OF SERVICE: 03/24/2021 PREOPERATIVE DIAGNOSIS: Benign prostatic hyperplasia with prostatism and retention. POSTOPERATIVE DIAGNOSIS: Benign prostatic hyperplasia with prostatism and retention. OPERATION PERFORMED: Transurethral resection of the prostate. SURGEON: Nigel Costa MD. ANESTHESIA: Spinal. COMPLICATIONS: None. DESCRIPTION OF PROCEDURE: Under satisfactory spinal anesthesia, the patient in lithotomy position, genitalia were prepped and draped in the usual sterile fashion. Urethra was dilated with Bella sound to #30 [place] easily to admit a 27-[place] Showcase-TV resectoscope. I started resecting the medial lobe and bar to level it then the roof from 11 to 1 o'clock position. Then the lateral lobes and finally apical tissue. Resection was adequate and hemostasis satisfactory. Bleeders were cauterized as the resection was proceeding. The capsule was visualized in many points. Prostatic chips were evacuated and cystoscopy confirmed intact ureteric orifices, veru and sphincter with good reflex. Resectoscope was then removed and a 24-Bel[place]an 3-way 30 mL balloon catheter was inserted in the bladder, balloon inflated to 45 mL, connected to continuous bladder irrigation on some traction, the return of which was crystal clear. Estimated blood loss was less than 50 mL, none of which was replaced. The patient tolerated the procedure and anesthesia well and was sent to recovery room in stable condition. Job ID: [id number] DocumentID: [id number] Dictated Date: 03/24/2021 08:44:15 Surveillance Technician Date: 03/24/2021 13:18:48 Dictated By: NIGEL COSTA MD
[2021-03-24] MEDS ORDERED: ACETAMINOPHEN 325 MG TABLET ONE (23:18)
[2021-03-24] MEDS: ACETAMINOPHEN 325 MG TABLET PO PRN (23:19)
[2021-03-25] VITALS (14 sets, daily range): BP systolic 114–161; BP diastolic 62–81
[2021-03-25] MEDS: ACETAMINOPHEN 325 MG TABLET PO PRN (03:08)
[2021-03-25] MEDS ORDERED: CATHETER FLUSH 10 ML SYR IV ONE (06:14)
[2021-03-25] MEDS: LACTATED RINGERS 1,000 ML IV SCH ×4 (07:21→23:00)
[2021-03-25] MEDS: DOCUSATE SODIUM 100 MG (COLACE) CAP PO SCH ×2 (08:28→19:40)
--- NOTE | 2021-03-25 09:20 | Progress Note - Urology ---
Progress Note-Urology Progress Notes/Assess & Plan Progress/Assessment & Plan DOING AND FEELING WELL. AFEBRILE, VSS. URINE CLEAR AND NICOLÁS. PLAN DC TORRES AND MANAGE ACCORDINGLY Final Diagnosis BPH WITH RETENTION NIGEL COSTA MD Mar 25, 2021 09:20
--- NOTE | 2021-03-25 09:36 | Anesthesia-Regional Post-Op ---
Regional Patient Condition Mental Status: Alert, Oriented x3 Circulation: Same as Pre-Op Headache: Absent Sensation: Full Recovery Motor Block: Absent Post Op Complications Complications None Follow Up Care/Instructions Patient Instructions None needed. Anesthesia/Patient Condition Patient is doing well, no complaints, stable vital signs, no apparent adverse anesthesia problems. No complications reported per nursing. ANGEL REMY CRNA Mar 25, 2021 09:36
[2021-03-25] MEDS ORDERED: PROMETHAZINE INJ 25 MG/ML (PHENERGAN) AMP ONE (13:51)
[2021-03-25 14:26] LABS: BASOPHILS # (AUTO) 0.1 10^3/uL (0.0-0.1); BASOPHILS % (AUTO) 0 % (0-10); EOSINOPHILS % (AUTO) 0 % (0-10); HEMATOCRIT 46 % (40-54); HEMOGLOBIN 15.6 g/dL (13.3-17.7); LYMPHOCYTES # (AUTO) 3.4 10^3/uL (1.0-4.0); LYMPHOCYTES % (AUTO) 25 % (12-44); MEAN CORPUSCULAR HEMOGLOBIN 31 pg (25-34); MEAN CORPUSCULAR HGB CONC 34 g/dL (32-36); MEAN CORPUSCULAR VOLUME 92 fL (80-99); MEAN PLATELET VOLUME 10.1 fL (9.0-12.2); MONOCYTES # (AUTO) 1.1 10^3/uL (0.0-1.0); MONOCYTES % (AUTO) 8 % (0-12); NEUTROPHILS # (AUTO) 8.8 10^3/uL (1.8-7.8); NEUTROPHILS % (AUTO) 65 % (42-75); PLATELET COUNT 203 10^3/uL (130-400); WHITE BLOOD COUNT 13.5 10^3/uL (4.3-11.0)
[2021-03-25 14:27] LABS: ABG BASE EXCESS -6.7 MMOL/L (-2.5-2.5); ABG OXYGEN SATURATION 98 % (94-100); ABG PCO2 32 MMHG (35-45); ABG PH 7.36 (7.37-7.43); ABG PO2 95 MMHG (79-93); ABG TCO2 18.8 MMOL/L (21.0-31.0)
[2021-03-25 14:28] LABS: ALBUMIN 3.9 GM/DL (3.2-4.5); CHLORIDE 98 MMOL/L (98-107); POTASSIUM 3.4 MMOL/L (3.6-5.0); SODIUM 134 MMOL/L (135-145)
[2021-03-25 14:28] LABS: ALLENS TEST YES-POS
[2021-03-25 14:29] LABS: PATIENT TEMP 36.7; VENTILATOR NO
[2021-03-25 14:30] LABS: GLUCOSE 198 MG/DL (70-105); TOTAL PROTEIN 7.2 GM/DL (6.4-8.2)
[2021-03-25 14:31] LABS: CARBON DIOXIDE 17 MMOL/L (21-32)
[2021-03-25 14:32] LABS: BILIRUBIN,TOTAL 0.7 MG/DL (0.1-1.0)
[2021-03-25 14:33] LABS: ALKALINE PHOSPHATASE 40 U/L (40-136)
[2021-03-25 14:34] LABS: CREATININE SERUM 1.86 MG/DL (0.60-1.30); GFR ESTIMATED 36
[2021-03-25 14:35] LABS: BUN/CREATININE RATIO 12
[2021-03-25 14:37] LABS: ALANINE AMINOTRANSFERASE 50 U/L (0-55)
[2021-03-25 14:38] LABS: FIBRIN DEGRADATION PRODUCTS 11.14 UG/ML (0.00-0.49); INR 1.1 (0.8-1.4); PROTHROMBIN TIME PATIENT 14.7 SEC (12.2-14.7)
--- NOTE | 2021-03-25 14:38 | Tele-ICU Consult ---
History of Present Illness History of Present Illness Date Seen by Provider: Mar 25, 2021 Time Seen by Provider: 14:37 Date of Admission Allergies and Home Medications Allergies Coded Allergies: Iodinated Contrast Media (Verified Allergy, Unknown, 09/18/15) Home Medications Amlodipine Besylate 10 Mg Tablet, 10 MG PO DAILY, (Reported) Aspirin 81 Mg Tablet.dr, 81 MG PO DAILY, (Reported) Finasteride 5 Mg Tablet, 5 MG PO DAILY, (Reported) Lisinopril/Hydrochlorothiazide 1 Each Tablet, 1 EACH PO DAILY, (Reported) Metformin HCl 1,000 Mg Tablet, 1,000 MG PO DAILY, (Reported) Tamsulosin HCl 0.4 Mg Cap, 0.4 MG PO BID, (Reported) Past Medical/Social/Family Hx Patient Social History Tobacco Use?: No Smoking Status: Former Smoker Use of E-Cig and/or Vaping dev: No Substance use?: No Alcohol Use?: No Pt stated abuse/neglect: No Immunizations Up To Date Influenza Vaccine Up-to-Date: Yes; Up-to-Date First/Initial COVID19 Vaccinat: 2020 Second COVID19 Vaccination Tahir: 2020 Date of Pneumonia Vaccine: Nov 08, 2013 Current Status Advance Directives: No Communicates: Verbally Primary Language: Icelandic Preferred Spoken Language: Icelandic Is interpretation needed?: No Sensory deficits: Hearing impairment Review of Systems Constitutional: see HPI Focused Exam Height, Weight, BMI Height: 5'11" Weight: 195lbs. 0.0oz. 88.121549sn; 26.23 BMI Method:Stated Exam Exam Patient acknowledged, consented, and participated in this virtual visit which was conducted using real time audio/video Vital Signs Date Time Temp Pulse Resp B/P (MAP) Pulse Ox O2 Delivery O2 Flow Rate FiO2 03/25/21 14:18 36.7 79 18 132/79 (96) 100 Nasal Cannula 10.00 03/25/21 14:00 80 03/25/21 11:50 37.0 79 18 133/63 (86) 95 Room Air 03/25/21 08:18 36.4 73 18 161/75 (103) 94 Room Air 03/25/21 08:00 96 Room Air 03/25/21 04:00 37.0 03/25/21 03:08 38.0 03/25/21 03:05 38.0 70 20 153/81 (105) 96 Room Air 03/25/21 00:11 36.5 03/24/21 23:19 37.9 03/24/21 23:02 37.9 73 20 157/74 (101) 93 Room Air 03/24/21 20:36 96 Room Air 03/24/21 20:27 37.2 68 20 174/81 (112) 95 Room Air 03/24/21 19:30 Room Air 03/24/21 16:00 36.2 71 18 174/82 (112) 93 Room Air I & O 03/25/21 06:59 Intake Total 2575 ml Output Total 2200 ml Balance 375 ml Height & Weight Height: 5'11" Weight: 195lbs. 0.0oz. 88.095116va; 26.23 BMI Method:Stated General Appearance: Other Results Lab Laboratory Tests 03/25/21 13:57 Assessment/Plan Assessment/Plan (Tele-ICU Physician , consultation) Available chart/ vitals / labs / Images reviewed H&P is from ER notes Patient's information available about PMH, Shx, Fhx allergy reviewed in EMR. ROS as per chart and RN report Now in ICU, hemodynamically stable Video assessment done using teleICU camera, rest of exam as per RN Discussed with RN. Consultants: urology Hospital course: 03/24 - Transurethral resection of the prostate ( elective 03/25 - rapid respond - found slummed over on toilet ( no fall ) poorly responsive Now in ICU - 10 L NC o2, BP stable , HR 80 , sinus A/P Poorly responsive ( found slummed over on toilet ( no fall ) - ? metabolic vs CVA vs PE vs syncope vs vasovagal - blood work sent , BS =140 , abg ordered , CT head ordered - EKG - no arrhytmias, no ischemia - protects airways , not follow commands at presentation , latter seems to trying to speak /amswer questions s/p Transurethral resection of the prostate - as per urology DM - ISS , monitor h/o A fib - in sinus now - off AC CKD - baseline cr 1.3 Lines : (Central Line Necessity Reviewed) Rodriguez: was removed 2 am OG: Nutrition: Analgesia: Anxiety/ delirium VTE Prophylaxis: scd Stress Ulcer Prophylaxis: Glycemic Control: Plans in collaboration with bedside consultants and IM MDs. Discussed with RN to reach out if any questions or concerns A total of 31 minutes of critical care time was devoted to this patient today, required to treat and/or prevent further deterioration of critical care condition ( as above ) . EM GILL MD Mar 25, 2021 14:38
--- NOTE | 2021-03-25 14:56 | Diagnostic Imaging Report ---
INDICATION: Unresponsive COMPARISON: 08/18/2008 FINDINGS: Single view of the chest demonstrates mild cardiac enlargement. Lungs are clear. There is no pneumothorax or effusion. There is a left subclavian central venous catheter crosses the midline. Osseous structures are unremarkable. IMPRESSION: No acute cardiopulmonary findings. Dictated by: Dictated on workstation # [id number]
--- NOTE | 2021-03-25 15:12 | Diagnostic Imaging Report ---
PROCEDURE: CT head without contrast. TECHNIQUE: Multiple contiguous axial images were obtained through the brain without the use of intravenous contrast. Auto Exposure Controls were utilized during the CT exam to meet ALARA standards for radiation dose reduction. INDICATION: 80-year-old male post code is now unresponsive. COMPARISONS: None. FINDINGS: The midline structures are not displaced. There are senescent changes in the brain with involutional changes and generalized atrophy. There are background chronic areas of microvascular ischemic change. Bashir-white differentiation is maintained. There is no sulcal effacement. There is no midline shift, mass effect, hydrocephalus, or hemorrhage. There are no abnormal extra-axial fluid collections or hemorrhage. Basilar cisterns appear normal. There is calcific atherosclerosis within the carotid siphons and visualized vertebral arteries. Sinuses, orbits, and mastoid air cells are normal. Bone windows show no calvarial changes. IMPRESSION: Advanced for age generalized atrophy with involutional changes with background chronic areas of microvascular ischemic change, but no acute findings identified by nonenhanced CT criteria. If symptoms warrant or persist, an MRI is recommended. Additional nonemergent findings as described above. Dictated by: Dictated on workstation # [id number]
--- NOTE | 2021-03-25 17:37 | CONSULTATION REPORT ---
DATE OF SERVICE: 03/25/2021 ATTENDING PRIMARY CARE PHYSICIAN: Dr. Milton Milan. ADMITTING PHYSICIAN: Dr. Clarke. HISTORY OF PRESENT ILLNESS: The patient is an 80-year-old male known to us. He is status post transurethral resection of the prostate for benign disease yesterday. He was up and sitting on the stool trying to micturate; however, felt lightheaded and fell over. There did not appear to be any cardiac or cardiorespiratory arrest at that time. He was very nauseous and did have several episodes of vomiting. He will need further evaluation and workup for potential cardiac source as well as a possible thromboembolic event as well as multiple IV fluids and medications and will require a central venous catheter. PAST MEDICAL HISTORY: Hypertension, benign prostatic hypertrophy, diabetes, hypercholesterolemia. PAST SURGICAL HISTORY: Transurethral resection of the prostate, laparoscopic bilateral inguinal hernia repair with excision of mass from left testicle in 1998, colonoscopy with carcinoid tumor resection. ALLERGIES: No known drug allergies. MEDICATIONS: Amlodipine 10 mg daily, metformin 1000 mg b.i.d., lisinopril/hydrochlorothiazide 20/25 mg daily, glipizide 10 mg daily, potassium 10 mEq daily, Pradaxa 150 mg b.i.d., Multaq b.i.d. SOCIAL HISTORY: Previous smoker, quit in 1969, 25 pack years. Negative alcohol. FAMILY HISTORY: Brother, esophageal cancer. Father, sister, brother with diabetes. VITAL SIGNS: Temperature 36.7, blood pressure 125/63, pulse 78, respirations 24, pulse ox 94% on 10 liters nasal cannula. REVIEW OF SYSTEMS: Well-nourished male currently in no acute distress. He is not experiencing any shortness of breath or difficulty breathing. No chest pain, palpitations, diaphoresis. Several episodes of nausea as well as small amounts of emesis. No cough or sputum production. No hematemesis, no coffee ground emesis. Has not had a bowel movement since admission. No fever, chills, no recent inadvertent weight loss. No headache or visual changes. PHYSICAL EXAMINATION: CHEST: Clear. Good breath sounds bilaterally. HEART: Regular, no murmurs. EXTREMITIES: No lower extremity edema, negative Homans sign. HEENT: No scleral icterus. NECK: No cervical lymphadenopathy. ABDOMEN: Soft, nontender, nondistended. SKIN: Warm, dry. LABORATORY DATA: WBC 13.5, hemoglobin 15.6, hematocrit 46, platelets 203. BUN 22, creatinine 1.86. ASSESSMENT AND PLAN: An 80-year-old male with a brief episode of unconsciousness and rapid response team initiated with obtundation, nausea, vomiting, and confusion. He will need further workup and evaluation as well as IV fluids and multiple IV medications and will require a central venous catheter. Preliminary CT scan was performed, which did not show any neurologic injury. Job ID: [id number] DocumentID: [id number] Dictated Date: 03/25/2021 17:24:00 Tumbler Plater Date: 03/25/2021 17:36:46 Dictated By: CHARLES WARE MD
[2021-03-25] MEDS ORDERED: HYDROcodone/APAP 7.5 MG/325 MG (LORTAB, LORCET PLUS) TABLET PO PRN (18:15)
[2021-03-25] MEDS ORDERED: fentaNYL INJ 100 MCG/2 ML AMP IVP PRN (18:15)
--- NOTE | 2021-03-25 20:50 | OPERATIVE REPORT ---
DATE OF SERVICE: 03/25/2021 PREPROCEDURE DIAGNOSES: Loss of consciousness, obtundation, atrial fibrillation. POSTPROCEDURE DIAGNOSES: Loss of consciousness, obtundation, atrial fibrillation. PROCEDURE: Placement of left subclavian central venous catheter. SURGEON: Charles Ware MD. ANESTHESIA: Local. ESTIMATED BLOOD LOSS: Minimal. FINDINGS: Catheter tip at superior vena caval -- right atrial junction. DISPOSITION: The patient tolerated the procedure well. INDICATIONS: The patient is an 80-year-old male status post transurethral resection of the prostate postoperative day #1. His Rodriguez catheter was removed in the morning and he proceeded with a trial of micturation; however, did develop loss of consciousness and obtundation and a rapid response team was initiated where he did have some episodes of nausea and vomiting; however, over time was awake and alert. The patient is going to require further workup and was also found to be in atrial fibrillation and has poor peripheral venous circulation and will require IV fluids as well as multiple IV medications and will require central venous catheter. DESCRIPTION OF PROCEDURE: The chest and neck were prepped and draped in standard surgical fashion. The left subclavian region was anesthetized using 1% lidocaine. Left subclavian vein was then cannulated with drawing of venous blood. The guidewire was then inserted without any resistance. Cannulating needle removed and a skin incision made using 11 blade. A tract was then created using a venous dilator. Through this opening, a triple lumen central venous catheter was placed over the guidewire using the Seldinger technique and the guidewire removed. All three ports moi venous blood and saline pushed in without any resistance. The catheter was then sutured to the skin using interrupted 3-0 silk sutures. Catheter was then cleaned and covered Op-Site. The patient tolerated the procedure well. We will get a post-procedure chest x-ray once confirmation of placement of the catheter may be accessed and use any time. Job ID: [id number] DocumentID: [id number] Dictated Date: 03/25/2021 17:27:32 Recordak Operator Date: 03/25/2021 20:49:32 Dictated By: CHARLES WARE MD [facility]
[2021-03-26] VITALS (19 sets, daily range): BP systolic 122–176; BP diastolic 53–101
[2021-03-26 04:40] LABS: BASOPHILS % (AUTO) 0 % (0-10); EOSINOPHILS % (AUTO) 0 % (0-10); HEMATOCRIT 37 % (40-54); HEMOGLOBIN 12.9 g/dL (13.3-17.7); LYMPHOCYTES # (AUTO) 1.4 10^3/uL (1.0-4.0); LYMPHOCYTES % (AUTO) 17 % (12-44); MEAN CORPUSCULAR HEMOGLOBIN 31 pg (25-34); MEAN CORPUSCULAR HGB CONC 35 g/dL (32-36); MEAN CORPUSCULAR VOLUME 90 fL (80-99); MEAN PLATELET VOLUME 9.5 fL (9.0-12.2); MONOCYTES % (AUTO) 12 % (0-12); NEUTROPHILS # (AUTO) 6.1 10^3/uL (1.8-7.8); NEUTROPHILS % (AUTO) 71 % (42-75); PLATELET COUNT 138 10^3/uL (130-400); WHITE BLOOD COUNT 8.6 10^3/uL (4.3-11.0)
[2021-03-26 04:59] LABS: POTASSIUM 3.3 MMOL/L (3.6-5.0)
[2021-03-26 05:00] LABS: CALCIUM 8.5 MG/DL (8.5-10.1)
[2021-03-26 05:04] LABS: PHOSPHORUS 4.1 MG/DL (2.3-4.7)
[2021-03-26 05:05] LABS: CREATININE SERUM 1.31 MG/DL (0.60-1.30)
[2021-03-26 05:07] LABS: MAGNESIUM 1.4 MG/DL (1.6-2.4)
[2021-03-26] MEDS: POTASSIUM CL 10MEQ/50ML IVPB 50 ML IV SCH ×3 (05:21→06:30)
[2021-03-26] MEDS: MAGNESIUM 1 GM/100 ML IVPB 100 ML IV SCH ×3 (05:22→06:30)
[2021-03-26] MEDS: KCL 20 MEQ TAB (K-DUR) PO SCH (05:22)
--- NOTE | 2021-03-26 06:49 | Progress Note - Urology ---
Progress Note-Urology Progress Notes/Assess & Plan Progress/Assessment & Plan DOING, FEELING AND LOOKING VERY WELL. HUNGRY. URINE CLEAR NICOLÁS. BACK TO NORMAL. LABS NOTED. NO COMPLAINTS AT ALL EXCEPT HUNGRY. PLAN PER ORDERS Final Diagnosis BPH NIGEL COSTA MD Mar 26, 2021 06:49
--- NOTE | 2021-03-26 08:19 | Consultation - Hospitalist ---
HPI History of Present Illness: HPI/Chief Complaint Jeffy Downing is an 80 year old male with PMH HTN, T2DM, CKD, BPH, who presented for a TURP. He was doing well post-operatively. His camacho had been removed. He went to the bathroom and sat on the toilet. He was trying to urinate and have a bowel movement. He does not remember feeling lightheaded or dizzy. He does not remember feeling sweaty. He denies chest pain and shortness of breath. He developed nausea and vomiting. He was found slumped over on the toilet. He denies any history of syncope. He was transferred to the ICU for ongoing care. Upon my exam, he has returned to his baseline. He is awake and alert. He is saturating well on room air. He is feeling hungry. Source: patient, family Date Seen 03/25/21 Attending Physician Jesus Clarke MD PCP Milton Milan MD Referring Physician Date of Admission Home Medications & Allergies Home Medications Reviewed patient Home Medication Reconciliation performed by pharmacy medication reconciliations scrub technician and/or nursing. Patients Allergies have been reviewed. Allergies Allergies Coded Allergies Iodinated Contrast Media (Verified Allergy, Unknown, 09/18/15) Past Asevzsk-Kfmymg-Jvjzvl Hx Patient Social History Tobacco Use?: No Smoking Status: Former Smoker Use of E-Cig and/or Vaping dev: No Substance use?: No Alcohol Use?: No Pt feels they are or have been: No Immunizations Up To Date Date of Influenza Vaccine: Feb 17, 2021 First/Initial COVID19 Vaccinat: 2020 Second COVID19 Vaccination Tahir: 2020 Date of Pneumonia Vaccine: Nov 08, 2013 Seasonal Allergies Seasonal Allergies: No Current Status Advance Directives: No Communicates: Verbally Primary Language: Upper Sorbian Preferred Spoken Language: Upper Sorbian Is interpretation needed?: No Sensory deficits: Hearing impairment Past Medical History Surgeries: Abdominal Currently Using CPAP: No Currently Using BIPAP: No Atrial Fibrillation, Hypertension Benign Prostatic Hyperpl, Prostate Problems Gall Bladder Disease Diabetes, Non-Insulin dep Colon Blood Disorders: No Family Medical History No Pertinent Family Hx Review of Systems Constitutional: no symptoms reported EENTM: no symptoms reported Respiratory: no symptoms reported Cardiovascular: syncope Gastrointestinal: no symptoms reported Genitourinary: no symptoms reported Musculoskeletal: no symptoms reported Skin: no symptoms reported Psychiatric/Neurological: No Symptoms Reported Physical Exam Physical Exam Vital Signs Vital Signs - First Documented 03/24/21 06:40 Temp 36.6 Pulse 81 Resp 18 B/P (MAP) 170/83 (112) Pulse Ox 97 O2 Delivery Room Air Capillary Refill : Less Than 3 SecondsLess Than 3 Seconds Height, Weight, BMI Height: 5'11" Weight: 195lbs. 0.0oz. 88.920034lb; 26.23 BMI Method:Stated General Appearance: No Apparent Distress, WD/WN, Other HEENT: PERRL/EOMI, Pharynx Normal Neck: Normal Inspection, Supple Respiratory: Lungs Clear, Normal Breath Sounds, No Respiratory Distress Cardiovascular: Regular Rate, Rhythm, No Edema, No Murmur Gastrointestinal: Normal Bowel Sounds, Non Tender, Soft Extremity: Normal Inspection, Non Tender, No Pedal Edema Neurologic/Psychiatric: Alert, Oriented x3, Normal Mood/Affect Skin: Normal Color, Warm/Dry Results Results/Procedures Labs Laboratory Tests 03/25/21 13:57 03/26/21 04:30 Patient resulted labs reviewed. Imaging: Reviewed Imaging Report Assessment/Plan Assessment and Plan Assess & Plan/Chief Complaint Syncope Likely vasovagal CT head normal Hgb normal Troponin and EKG unremarkable Cardiology consulted Ddimer elevated, on room air, unlikely PE TeleICU following Monitor TIKA on CKD IV fluids BPH s/p TURP Urology following Camacho reinserted HTN Holding home meds T2DM Holding home meds Sliding scale insulin Diagnosis/Problems Diagnosis/Problems (1) Vasovagal syncope Status: Acute (2) Acute kidney injury superimposed on chronic kidney disease Status: Acute (3) BPH (benign prostatic hyperplasia) Status: Acute (4) S/P TURP Status: Acute (5) HTN (hypertension) Status: Acute (6) T2DM (type 2 diabetes mellitus) Status: Acute Qualifiers: Diabetes mellitus longterm insulin use: without longterm use Diabetes mellitus complication status: with hyperglycemia Qualified Codes: E11.65 - Type 2 diabetes mellitus with hyperglycemia YOVANI CASTANEDA MD Mar 26, 2021 08:19
[2021-03-26] MEDS: LACTATED RINGERS 1,000 ML IV SCH ×3 (08:29→17:00)
--- NOTE | 2021-03-26 08:39 | Tele-ICU Progress Note ---
Subjective Date Seen by a Provider: Mar 26, 2021 Time Seen by a Provider: 07:25 Subjective/Events-last exam This virtual visit was conducted using real time audio/video. Thank you for asking us to see this patient for respiratory insufficiency now improved. Recent events: Found slumped on toilet post TURP. ? vasovagal v. PE PE: Appears comfortable. VSS. O2 sat 98% on RA. HEENT: No obvious masses, adenopathy or JVD. Chest: clear to auscultation. CV: RRR S1 S2 No murmur or added sounds. Abd: Non-tender. Bowel sounds Y. : Unremarkable. Rodriguez Y. HAIRPIECE STYLIST/psychiatric: Grossly intact. No obvious focal findings. Extremities: No edema. Capillary refill < 3 seconds. Skin: unremarkable. Results: Elevated D-Dimer 11.14, BUN 20, Creat 1.31, BG 176. Decreased Hb 12.9. CXR: normal. Available chart/ vitals / labs / images reviewed. Video assessment done using teleICU camera, rest of exam as per RN. A/P: Respiratory insufficiency: resolved. Will check V/Q scan. Monitor for increasing oxygenation needs and/or need for intubation. Critical Care: critically ill patient. Cont. SSi, Lis., Norv. Discussed with RN Navjot. Asked RN to reach out to eICU if any questions or concerns later. Time spent with patient/coordination of care with other health professionals (mins): 25 Sepsis Event Evaluation Height, Weight, BMI Height: 5'11" Weight: 195lbs. 0.0oz. 88.457431hu; 26.23 BMI Method:Stated Exam Exam Patient acknowledged, consented, and participated in this virtual visit which was conducted using real time audio/video Vital Signs Date Time Temp Pulse Resp B/P (MAP) Pulse Ox O2 Delivery O2 Flow Rate FiO2 03/26/21 08:00 62 33 169/83 (111) 100 Room Air 03/26/21 07:35 37.0 03/26/21 07:00 65 03/26/21 07:00 60 17 176/86 (116) 97 Room Air 03/26/21 06:00 60 18 142/101 (115) 100 Room Air 03/26/21 05:00 63 11 146/89 (108) 98 Room Air 03/26/21 04:00 36.5 Room Air 03/26/21 04:00 98 Room Air 03/26/21 04:00 60 17 143/76 (103) 99 Room Air 03/26/21 03:00 66 144/77 (107) 98 Room Air 03/26/21 02:00 64 22 130/82 (96) 99 Room Air 03/26/21 01:00 67 03/26/21 01:00 67 15 133/75 (112) 97 Room Air 03/26/21 00:00 96 Room Air 03/26/21 00:00 67 14 135/80 (103) 99 Room Air 03/25/21 23:59 36.4 Room Air 03/25/21 23:00 64 17 133/81 (98) 97 Room Air 03/25/21 22:00 68 19 127/69 (88) 95 Room Air 03/25/21 21:00 73 18 126/77 (93) 98 Room Air 03/25/21 20:00 77 22 140/73 (95) 95 Room Air 03/25/21 19:40 95 Room Air 03/25/21 19:00 79 22 138/79 (98) 97 Room Air 03/25/21 19:00 36.8 Room Air 03/25/21 19:00 79 03/25/21 18:00 81 21 149/81 (103) 99 High Flow N/C 10.00 03/25/21 17:00 75 19 143/69 (93) 100 High Flow N/C 10.00 03/25/21 16:00 94 Room Air 03/25/21 16:00 78 24 125/63 (83) 100 High Flow N/C 10.00 03/25/21 15:00 81 24 114/62 (79) 100 High Flow N/C 10.00 03/25/21 14:18 36.7 79 18 132/79 (96) 100 Nasal Cannula 10.00 03/25/21 14:00 80 03/25/21 13:31 78 28 100 03/25/21 11:50 37.0 79 18 133/63 (86) 95 Room Air I & O 03/26/21 07:00 Intake Total 1650 ml Output Total 1925 ml Balance -275 ml Height & Weight Height: 5'11" Weight: 195lbs. 0.0oz. 88.170274yv; 26.23 BMI Method:Stated General Appearance: No Apparent Distress, WD/WN, Other HEENT: PERRL/EOMI, Pharynx Normal Neck: Normal Inspection, Supple Respiratory: Lungs Clear, Normal Breath Sounds, No Respiratory Distress Cardiovascular: Regular Rate, Rhythm, No Edema, No Murmur Capillary Refill: Less Than 3 Seconds Extremity: Normal Inspection, Non Tender, No Pedal Edema Neurologic/Psychiatric: Alert, Oriented x3, Normal Mood/Affect Skin: Normal Color, Warm/Dry Results Lab Laboratory Tests 03/25/21 13:57 03/26/21 04:30 Assessment/Plan Assessment/Plan See free text Critical Care: Critically Ill Patient QIANA MARTINEZ MD Mar 26, 2021 08:39
[2021-03-26] MEDS: DOCUSATE SODIUM 100 MG (COLACE) CAP PO SCH ×2 (08:42→20:30)
[2021-03-26] MEDS: lisINopril 20 MG (PRINIVIL) TABLET PO SCH (08:42)
[2021-03-26] MEDS: amLODIPine 10 MG (NORVASC) TAB PO SCH (08:43)
--- NOTE | 2021-03-26 09:43 | Consultation-Cardiology ---
HPI-Cardiology Cardiology Consultation Date of Consultation 03/26/21 Date of Admission Time Seen by Provider: 09:36 Indication: Syncope HPI 80 years old gentleman with history of hypertension, diabetes mellitus, underwent TURP, postoperatively patient was trying to urinate and reported that it was significantly painful then he became lightheaded and had a syncopal episode. Had another episode of dizziness and hypotension when he was transferred to the intensive care unit. Since then he has been feeling better. This morning he was laying down in bed, feeling well, no dizziness. Denied any chest pain. No shortness of breath. No palpitation. Home Medications & Allergies Allergies: Coded Allergies: Iodinated Contrast Media (Verified Allergy, Unknown, 09/18/15) Home Medication List Reviewed: Yes RYE-Cqvmiq-Zbwzqw Hx Patient Social History Marital Status: Employed/Student: retired Recreational Drug Use: No Smoking Status: Former Smoker Type Used: Cigarettes Recent Hopitalizations: No Have you traveled recently?: No Alcohol Use?: No Immunizations Up To Date Date of Pneumonia Vaccine: Nov 08, 2013 Date of Influenza Vaccine: Feb 17, 2021 Past Medical History Discussed below Family Medical History Significant Family History: No Pertinent Family Hx Family Medical Hx Noncontributory Review of Systems-General Review of Systems Constitutional: see HPI, other (Syncope) EENTM: no symptoms reported Respiratory: see HPI; No cough, No dyspnea on exertion, No hemoptysis, No orthopnea, No phlegm, No short of breath, No stridor, No wheezing, No other Cardiovascular: see HPI; No chest pain, No edema, No Hx of Intervention, No palpitations; syncope; No vascular heart diseas, No other Gastrointestinal: no symptoms reported, see HPI Genitourinary: see HPI, dysuria Musculoskeletal: no symptoms reported, see HPI Skin: no symptoms reported, see HPI Psychiatric/Neurological: No Symptoms Reported, See HPI Reviewed Test Results Reviewed Test Results Lab Laboratory Tests Test 03/25/21 13:40 03/25/21 13:57 03/25/21 14:16 03/26/21 04:30 Range/Units Glucometer 141 H 70-110 MG/DL White Blood Count 13.5 H 8.6 4.3-11.0 10^3/uL Red Blood Count 4.98 4.12 L 4.30-5.52 10^6/uL Hemoglobin 15.6 12.9 L 13.3-17.7 g/dL Hematocrit 46 37 L 40-54 % Mean Corpuscular Volume 92 90 80-99 fL Mean Corpuscular Hemoglobin 31 31 25-34 pg Mean Corpuscular Hemoglobin Concent 34 35 32-36 g/dL Red Cell Distribution Width 13.0 12.9 10.0-14.5 % Platelet Count 203 138 130-400 10^3/uL Mean Platelet Volume 10.1 9.5 9.0-12.2 fL Immature Granulocyte % (Auto) 1 0 % Neutrophils (%) (Auto) 65 71 42-75 % Lymphocytes (%) (Auto) 25 17 12-44 % Monocytes (%) (Auto) 8 12 0-12 % Eosinophils (%) (Auto) 0 0 0-10 % Basophils (%) (Auto) 0 0 0-10 % Neutrophils # (Auto) 8.8 H 6.1 1.8-7.8 10^3/uL Lymphocytes # (Auto) 3.4 1.4 1.0-4.0 10^3/uL Monocytes # (Auto) 1.1 H 1.0 0.0-1.0 10^3/uL Eosinophils # (Auto) 0.0 0.0 0.0-0.3 10^3/uL Basophils # (Auto) 0.1 0.0 0.0-0.1 10^3/uL Immature Granulocyte # (Auto) 0.1 0.0 0.0-0.1 10^3/uL Prothrombin Time 14.7 12.2-14.7 SEC INR Comment 1.1 0.8-1.4 D-Dimer 11.14 H 0.00-0.49 UG/ML Sodium Level 134 L 136 135-145 MMOL/L Potassium Level 3.4 L 3.3 L 3.6-5.0 MMOL/L Chloride Level 98 101 98-107 MMOL/L Carbon Dioxide Level 17 L 23 21-32 MMOL/L Anion Gap 19 H 12 5-14 MMOL/L Blood Urea Nitrogen 22 H 20 H 7-18 MG/DL Creatinine 1.86 H 1.31 H 0.60-1.30 MG/DL Estimat Glomerular Filtration Rate 36 54 BUN/Creatinine Ratio 12 15 Glucose Level 198 H 176 H 70-105 MG/DL Calcium Level 9.0 8.5 8.5-10.1 MG/DL Corrected Calcium 9.1 8.5-10.1 MG/DL Total Bilirubin 0.7 0.1-1.0 MG/DL Aspartate Amino Transf (AST/SGOT) 36 H 5-34 U/L Alanine Aminotransferase (ALT/SGPT) 50 0-55 U/L Alkaline Phosphatase 40 40-136 U/L Troponin I < 0.028 <0.028 NG/ML Total Protein 7.2 6.4-8.2 GM/DL Albumin 3.9 3.2-4.5 GM/DL Blood Gas Puncture Site LRAD Blood Gas Patient Temperature 36.7 Arterial Blood pH 7.36 L 7.37-7.43 Arterial Blood Partial Pressure CO2 32 L 35-45 MMHG Arterial Blood Partial Pressure O2 95 H 79-93 MMHG Arterial Blood HCO3 18 L 23-27 MMOL/L Arterial Blood Total CO2 18.8 L 21.0-31.0 MMOL/L Arterial Blood Oxygen Saturation 98 94-100 % Arterial Blood Base Excess -6.7 L -2.5-2.5 MMOL/L Jonathon Test YES-POS Blood Gas Ventilator Setting NO Blood Gas Inspired Oxygen UNK Phosphorus Level 4.1 2.3-4.7 MG/DL Magnesium Level 1.4 L 1.6-2.4 MG/DL Physical Exam Physical Exam Vital Signs Vital Signs - First Documented 03/24/21 06:40 Temp 36.6 Pulse 81 Resp 18 B/P (MAP) 170/83 (112) Pulse Ox 97 O2 Delivery Room Air Capillary Refill : Less Than 3 SecondsLess Than 3 Seconds Height, Weight, BMI Height: 5'11" Weight: 195lbs. 0.0oz. 88.631882rd; 26.23 BMI Method:Stated General Appearance: No Apparent Distress, WD/WN, Other HEENT: PERRL/EOMI, Pharynx Normal Neck: Normal Inspection, Supple Respiratory: Lungs Clear, Normal Breath Sounds, No Respiratory Distress Cardiovascular: Regular Rate, Rhythm, No Edema, No Murmur Gastrointestinal: Normal Bowel Sounds, Non Tender, Soft Extremity: Normal Inspection, Non Tender, No Pedal Edema Neurologic/Psychiatric: Alert, Oriented x3, Normal Mood/Affect Skin: Normal Color, Warm/Dry A/P-Cardiology Assessment/Plan Syncope, probably vasovagal secondary to painful micturition. No further episodes were reported, now having a Rodriguez catheter. Once the Rodriguez catheter is removed patient will attempt to urinate and will continue monitoring, receiving IV fluid. BPH, status post TURP done on 03/24/2021, still unable to urinate Hypokalemia, hypomagnesemia, being replaced. Continue to monitor Abnormal EKG with right bundle branch block, nonspecific T wave abnormality, no change compared to the baseline. History of paroxysmal atrial fibrillation, had history of loop monitor implanted in July 2018, had one brief episode of atrial fibrillation in the past. I will interrogate his loop monitor for any malignant arrhythmia recently. [id number] score of 4, yearly risk of stroke without oral anticoagulation is 4%. Patient was maintained on aspirin 325 mg daily as an outpatient and loop monitor was followed Intolerance to metoprolol with history of severe bradycardia and fatigue. Continue to monitor heart rate and blood pressure Hypertension, planning to restart his home medication monitor blood pressure Hyperlipidemia, monitor lipids Chronic renal insufficiency, monitor renal function Diabetes mellitus, followed and managed by primary care physician History of mild bilateral carotid stenosis nonobstructive disease, last ultrasound was done in May 2020 History of colon cancer GISSELLE DONOHUE MD Mar 26, 2021 09:43
[2021-03-26] MEDS ORDERED: inSUlin ASPART (NovoLOG) 1 UNIT/0.01 ML (CHARGE PER UNIT) SC SCH (10:00)
--- NOTE | 2021-03-26 12:27 | Progress Note - Hospitalist ---
Subjective HPI/CC On Admission Date Seen by Provider: Mar 26, 2021 Time Seen by Provider: 09:10 Jeffy Downing is an 80 year old male with PMH HTN, T2DM, CKD, BPH, who presented for a TURP. He was doing well post-operatively. His camacho had been removed. He went to the bathroom and sat on the toilet. He was trying to urinate and have a bowel movement. He does not remember feeling lightheaded or dizzy. He does not remember feeling sweaty. He denies chest pain and shortness of breath. He developed nausea and vomiting. He was found slumped over on the toilet. He denies any history of syncope. He was transferred to the ICU for ongoing care. Upon my exam, he has returned to his baseline. He is awake and alert. He is saturating well on room air. He is feeling hungry. Subjective/Events-last exam He is feeling better today. He needs to have a bowel movement. He has not had any further syncope. He denies lightheadedness and dizziness. He is not short of breath. He denies chest pain and palpitations. He still has the camacho catheter in place. He has been able to eat and drink without issue. Objective Exam Vital Signs Vital Signs Date Time Temp Pulse Resp B/P (MAP) Pulse Ox O2 Delivery O2 Flow Rate FiO2 03/26/21 11:54 36.4 03/26/21 11:00 60 23 137/74 (95) 100 Room Air 03/25/21 18:00 10.00 Capillary Refill : Less Than 3 SecondsLess Than 3 Seconds General Appearance: No Apparent Distress, WD/WN Respiratory: Lungs Clear, No Respiratory Distress Cardiovascular: Regular Rate, Rhythm, No Murmur Gastrointestinal: Normal Bowel Sounds, Non Tender, Soft Extremity: Normal Inspection, Non Tender, No Pedal Edema Neurologic/Psychiatric: Alert, Oriented x3, No Motor/Sensory Deficits, Normal Mood/Affect Skin: Normal Color, Warm/Dry Results/Procedures Lab Laboratory Tests 03/25/21 13:57 03/26/21 04:30 Patient resulted labs reviewed. Imaging: Reviewed Imaging Report Assessment/Plan Assessment and Plan Assess & Plan/Chief Complaint Vasovagal syncope CT head normal Hgb normal Troponin normal and EKG stable Cardiology following Ddimer elevated, on room air, unlikely PE Wells score 1.5, low likelihood of PE TeleICU following Planning for V/Q scan today TIKA on CKD Improved Stop IV fluids BPH s/p TURP Urology following Camacho reinserted, planning to remove today HTN Holding home meds T2DM Holding home meds Sliding scale insulin Diagnosis/Problems Diagnosis/Problems (1) Vasovagal syncope Status: Acute (2) Acute kidney injury superimposed on chronic kidney disease Status: Acute (3) BPH (benign prostatic hyperplasia) Status: Acute (4) S/P TURP Status: Acute (5) HTN (hypertension) Status: Acute (6) T2DM (type 2 diabetes mellitus) Status: Acute Qualifiers: Diabetes mellitus snf insulin use: without snf use Diabetes mellitus complication status: with hyperglycemia Qualified Codes: E11.65 - Type 2 diabetes mellitus with hyperglycemia YOVANI CASTANEDA MD Mar 26, 2021 12:27
--- NOTE | 2021-03-26 15:26 | Diagnostic Imaging Report ---
INDICATION: Shortness of breath. COMPARISON: None. RADIOPHARMACEUTICAL: 5.32 mCi technetium-99m MAA IV. FINDINGS: Perfusion only lung scan images were performed. There is normal homogeneous distribution of the tracer activity throughout both lungs. There is no pulmonary embolism. IMPRESSION: Negative perfusion lung scan. Dictated by: Dictated on workstation # [id number]
[2021-03-26] MEDS: inSUlin ASPART (NovoLOG) 1 UNIT/0.01 ML (CHARGE PER UNIT) SC SCH ×2 (17:00→20:31)
[2021-03-27] VITALS (8 sets, daily range): BP systolic 125–158; BP diastolic 56–84
[2021-03-27] MEDS: LACTATED RINGERS 1,000 ML IV SCH ×2 (00:48)
[2021-03-27 04:44] LABS: BASOPHILS % (AUTO) 1 % (0-10); EOSINOPHILS # (AUTO) 0.2 10^3/uL (0.0-0.3); EOSINOPHILS % (AUTO) 3 % (0-10); HEMATOCRIT 35 % (40-54); LYMPHOCYTES # (AUTO) 1.3 10^3/uL (1.0-4.0); LYMPHOCYTES % (AUTO) 24 % (12-44); MEAN CORPUSCULAR HEMOGLOBIN 31 pg (25-34); MEAN CORPUSCULAR HGB CONC 35 g/dL (32-36); MEAN CORPUSCULAR VOLUME 91 fL (80-99); MEAN PLATELET VOLUME 9.8 fL (9.0-12.2); MONOCYTES # (AUTO) 0.7 10^3/uL (0.0-1.0); MONOCYTES % (AUTO) 12 % (0-12); NEUTROPHILS # (AUTO) 3.4 10^3/uL (1.8-7.8); NEUTROPHILS % (AUTO) 61 % (42-75); PLATELET COUNT 123 10^3/uL (130-400); WHITE BLOOD COUNT 5.6 10^3/uL (4.3-11.0)
[2021-03-27 05:16] LABS: POTASSIUM 3.5 MMOL/L (3.6-5.0)
[2021-03-27 05:17] LABS: CALCIUM 8.5 MG/DL (8.5-10.1)
[2021-03-27] MEDS: inSUlin ASPART (NovoLOG) 1 UNIT/0.01 ML (CHARGE PER UNIT) SC SCH (05:20)
[2021-03-27 05:21] LABS: CREATININE SERUM 1.05 MG/DL (0.60-1.30)
[2021-03-27] MEDS: KCL 20 MEQ TAB (K-DUR) PO SCH (05:22)
[2021-03-27] MEDS: POTASSIUM CL 10MEQ/50ML IVPB 50 ML IV SCH (05:22)
[2021-03-27] MEDS: MAGNESIUM 1 GM/100 ML IVPB 100 ML IV SCH ×3 (06:07→08:18)
[2021-03-27] MEDS ORDERED: MAGNESIUM 1 GM/100 ML IVPB 100 ML IV ONE (06:30)
--- NOTE | 2021-03-27 08:12 | Cardiology Progress Note ---
Subjective Date Seen by Provider: Mar 27, 2021 Time Seen by Provider: 08:08 Subjective/Events-last exam Patient sitting up in bed, no new complaints. Denies any chest pain, dizziness or lightheadedness. Review of Systems General: No Chills, No Night Sweats, No Fatigue, No Malaise, No Appetite, No Other HEENT: No Head Aches, No Visual Changes, No Eye Pain, No Ear Pain, No Dysphasia, No Sinus Congestion, No Post Nasal Drip, No Sore Throat, No Other Pulmonary: No Dyspnea, No Cough, No Pleuritic Chest Pain, No Other Cardiovascular: No: Chest Pain, Palpitations, Orthopnea, Paroxysmal Noc. Dyspnea, Edema, Lt Headedness, Other Objective-Cardiology Exam Last Set of Vital Signs Vital Signs 03/25/21 03/27/21 18:00 07:47 Temp 36.3 Pulse 57 Resp 16 B/P (MAP) 144/80 (101) Pulse Ox 98 O2 Delivery Room Air O2 Flow Rate 10.00 I&O Intake and Output 03/27/21 00:00 Intake Total 1200 ml Output Total 1925 ml Balance -725 ml Intake Oral 1000 ml IV Total 200 ml Output Urine Total 1925 ml # Bowel Movements 1 General: Alert, Oriented X3, Cooperative HEENT: Atraumatic, PERRLA Neck: Supple, No JVD, No Thyromegaly Lungs: Clear to Auscultation, Normal Air Movement Heart: Regular Rate, Normal S1, Normal S2, No Murmurs Abdomen: Normal Bowel Sounds, Soft, No Tenderness, No Hepatosplenomegaly, No Masses Extremities: No Clubbing, No Cyanosis, No Edema, Normal Pulses, No Tenderness/Swelling Skin: No Rashes, No Breakdown, No Significant Lesion Neuro: Normal Speech Psych/Mental Status: Mental Status NL, Mood NL Results Lab Laboratory Tests 03/27/21 04:35 A/P-Cardiology Admission Diagnosis Syncope HTN PAF Assessment/Plan Syncope, probably vasovagal secondary to painful micturition. No further episodes were reported. 2D Echo done 03/26/21 showing EF 65%, grade 1 diastolic dysfunction. PA 30- 35mmHg. BPH, status post TURP done on 03/24/2021 Hypokalemia, hypomagnesemia, being replaced. Continue to monitor Abnormal EKG with right bundle branch block, nonspecific T wave abnormality, no change compared to the baseline. History of paroxysmal atrial fibrillation, had history of loop monitor implanted in July 2018, had one brief episode of atrial fibrillation in the past. Loop interrogation done yesterday showed no arrhythmia recently. [id number] score of 4, yearly risk of stroke without oral anticoagulation is 4%. Patient was maintained on aspirin 325 mg daily as an outpatient and loop monitor was followed Intolerance to metoprolol with history of severe bradycardia and fatigue. Continue to monitor heart rate and blood pressure Hypertension, controlled, continue to monitor. Hyperlipidemia, monitor lipids Chronic renal insufficiency, monitor renal function Diabetes mellitus, followed and managed by primary care physician History of mild bilateral carotid stenosis nonobstructive disease, last ultrasound was done in May 2020 History of colon cancer Patient was seen and evaluated with Marcelle, examination performed, management plan was discussed, agree with the current scribed note, I made few changes to the note using Italic font Patient was seen at bedside, sitting comfortably, able to urinate without d ifficulty No further episodes of dizziness and lightheadedness Echo showed normal LV function Mild hypomagnesemia, being replaced Mild hypokalemia, being replaced. Okay for discharge and follow-up as an outpatient MARCELLE ESCOBEDO Mar 27, 2021 08:12 GISSELLE DONOHUE MD Mar 27, 2021 09:56
[2021-03-27] MEDS: lisINopril 20 MG (PRINIVIL) TABLET PO SCH (08:19)
[2021-03-27] MEDS: amLODIPine 10 MG (NORVASC) TAB PO SCH (08:20)
[2021-03-27] MEDS: DOCUSATE SODIUM 100 MG (COLACE) CAP PO SCH (08:20)
[2021-03-27] MEDS ORDERED: KCL 20 MEQ TAB (K-DUR) PO ONE (09:00)
--- NOTE | 2021-03-27 10:26 | Progress Note - Urology ---
Progress Note-Urology Progress Notes/Assess & Plan Progress/Assessment & Plan DOING AND FEELING WELL. VOIDING WELL, GOOD STREAM, CONTROL AND EMPTYING. URINE CLEAR. HOME WITH INSTRUCTIONS Final Diagnosis BPH NIGEL COSTA MD Mar 27, 2021 10:26
== END 2021-03-27 11:15 | disposition home or self-care (01) ==
LOC: SDC 06:13 → 4TH 09:35 → ICU 03-25 13:53 → SDC 03-26 10:49 → ICU 03-26 12:55 → CSD 03-26 17:23
PROVIDERS: ADMIT Urology; ATTEND Urology
DX: C61 Malignant neoplasm of prostate (principal); N40.1 Benign prostatic hyperplasia with lower urinary tract symptoms; R33.9 Retention of urine, unspecified; I48.0 Paroxysmal atrial fibrillation; R55 Syncope and collapse; R41.0 Disorientation, unspecified; R11.2 Nausea with vomiting, unspecified; I45.10 Unspecified right bundle-branch block; I12.9 Hypertensive chronic kidney disease with stage 1 through stage 4 chronic kidney disease, or unspecified chronic kidney disease; E11.22 Type 2 diabetes mellitus with diabetic chronic kidney disease; E11.65 Type 2 diabetes mellitus with hyperglycemia; E83.42 Hypomagnesemia; E87.6 Hypokalemia; E78.00 Pure hypercholesterolemia, unspecified; N18.9 Chronic kidney disease, unspecified; N17.9 Acute kidney failure, unspecified; Z85.038 Personal history of other malignant neoplasm of large intestine; Z79.84 Long term (current) use of oral hypoglycemic drugs; Z79.899 Other long term (current) drug therapy; Z79.01 Long term (current) use of anticoagulants; Z87.891 Personal history of nicotine dependence
CPT/HCPCS: 36556; 52601; 70450; 71045; 78580; 80048 ×2; 80053; 82805; 82947 ×4; 83735 ×2; 84100; 84484; 85025 ×3; 85379; 85610; 86850; 86900; 86901; 87081; 93005 ×2; 93306; 94664; A9540; 36415; G0378

== ENCOUNTER → 2021-04-12 | Outpatient (CLI) | payer MEDICARE ==
--- NOTE | 2021-04-12 18:54 | Diagnostic Imaging Report ---
INDICATION: Fall with pelvic and left hip pain. EXAMINATION: AP view of the pelvis was obtained with coned and frog-leg views of left hip. FINDINGS: Coccygeal deformity is noted which is likely chronic in nature. No acute fracture or dislocation is identified. No abnormal lytic or sclerotic focus is seen, and there is no radiopaque foreign body. IMPRESSION: No acute abnormality. Dictated by: Dictated on workstation # [id number]
--- NOTE | 2021-04-12 18:54 | Diagnostic Imaging Report ---
INDICATION: Fall with left knee pain. EXAMINATION: AP, oblique and lateral views of the left knee were obtained. FINDINGS: No acute fracture or malalignment is identified. There is a small amount of joint fluid present. No lytic or sclerotic lesion is identified. IMPRESSION: Small amount of left knee joint fluid without acute osseous abnormality identified. Dictated by: Dictated on workstation # [id number]
== END ==
LOC: RAD 17:59
PROVIDERS: ATTEND Surgery
DX: M25.562 Pain in left knee (principal); M25.552 Pain in left hip; R10.2 Pelvic and perineal pain; W19.XXXA Unspecified fall, initial encounter
CPT/HCPCS: 73562